=== PATIENT | male | born 2005 | race Two or more races ===

== ENCOUNTER 2025-02-03 20:35 | Inpatient (IN) | payer MEDICAID, OTHER ==
[~2025-02-03] VITALS: Ht 175.3 cm; Wt 106.5 kg
--- NOTE | 2025-02-03 21:01 | ED.PDOC ---
GI ASSESSMENT HPI Comments 19y M who presents to the ED for chief complaint of abdominal pain for the past 2 days. Pt states he has been having bilateral RUQ and LUQ abdominal pain, achy in nature, constant, radiating to upper back, with noted exacerbating factor of movement and no relieving factors. Pt has associated nausea and vomiting but denies any other symptoms. Pt mother states pt has been unable to keep anything down since. Pt otherwise denies these symptoms in the past. Chief Complaint: Abdominal Pain Time Seen by MD: 20:45 Reviewed Notes: Medications, Allergies Allergies: Coded Allergies: NO KNOWN ALLERGIES (Unverified , 02/03/25) Information Source: Patient, Relative (Mother) Mode of Arrival: Ambulatory Brought in by: mother Timing: Hours, Days Duration: Since onset Prehospital treatment: None Quality: Aching Vomitus: Food Particles Stool: Normal Past Medical History PAST MEDICAL HISTORY: Denies Surgical History: Denies all surgeries Family History Family History: Reviewed,noncontributory to illness Social History Smoker: Non-Smoker Alcohol: Denies ETOH Use Drugs: Denies Drug Use Lives In: Home Constitutional: denies: chills, diaphoresis, fatigue, fever, malaise, sweats, weakness, others EENTM: denies: blurred vision, double vision, ear bleeding, ear discharge, ear drainage, ear pain, ear ringing, eye pain, eye redness, hearing loss, mouth pain, mouth swelling, nasal discharge, nose bleeding, nose congestion, nose pain, photophobia, tearing, throat pain, throat swelling, voice changes, others Respiratory: denies: cough, hemoptysis, orthopnea, SOB at rest, shortness of breath, SOB with excertion, stridor, wheezing, others Cardiovascular: denies: chest pain, dizzy spells, diaphoresis, Dyspnea on exertion, edema, irregular heart beat, left arm pain, lightheadedness, palpitations, PND, syncope, others Gastrointestinal: reports: abdominal pain, nausea, vomiting; denies: abdomen distended, blood streaked bowels, constipated, diarrhea, dysphagia, difficulty swallowing, hematemesis, melena, poor appetite, poor fluid intake, rectal bleeding, rectal pain, others Genitourinary: denies: burning, dysuria, flank pain, frequency, hematuria, incontinence, penile discharge, penile sore, pain, testicle pain, testicle swelling, urgency, others Neurological: denies: dizziness, fainting, headache, left sided numbness, left sided weakness, numbness, paresthesia, pre-existing deficit, right sided numbness, right sided weakness, seizure, speech problems, tingling, tremors, weakness, others Musculoskeletal: reports: back pain; denies: gout, joint pain, joint swelling, muscle pain, muscle stiffness, neck pain, others Integumetry: denies: bruises, change in color, change in hair/nails, dryness, laceration, lesions, lumps, rash, wounds, others Allergic/Immunocompromised: denies: Difficulty Healing, Frequent Infections, Hives, Itching, others Hematologic/Lymphatic: denies: anemia, blood clots, easy bleeding, easy bruising, swollen glands, others Endocrine: denies: excessive hunger, excessive sweating, excessive thirst, excessive urination, flushing, intolerance to cold, intolerance to heat, unexplained weight gain, unexplained weight loss, others Psychiatric: denies: anxiety, bipolar disorder, depression, hopeless, panic disorder, schizophrenia, sleepless, suicidal, others All Other Systems: Reviewed and Negative Physical Exam General Appearance: Moderate Distress HEENT: Normal ENT Inspection, Pharynx Normal, TMs Normal Neck: Full Range of Motion, Non-Tender, Normal, Normal Inspection Respiratory: Chest Non-Tender, Lungs Clear, No Accessory Muscle Use, No Respiratory Distress, Normal Breath Sounds Cardiovascular: No Edema, No JVD, No Murmur, No Gallop, Normal Peripheral Pulses, Regular Rate/Rhythm Breast Exam: Deferred Gastrointestinal: LUQ (tenderness to palpation), RUQ (tenderness to palpation) Genitalia: Deferred Pelvic: Deferred Rectal: Deferred Extremities: No calf tenderness, Normal capillary refill, Normal inspection, Normal range of motion, Non-tender, No pedal edema Musculoskeletal : Apperance: Normal Neurologic: Alert, 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 Was a procedure done?: No GI differential Dx Differential Diagnosis: Appendicitis, Constipation, Esophagitis, Gastritis/PUD, Gastroenteritis, Pancreatitis, Dehydration, Food Poisoning, Bacterial, Viral, Kidney Stone X-Ray, Labs, Meds, VS Vital Signs Date Time Temp Pulse Resp B/P (MAP) Pulse Ox O2 Delivery O2 Flow Rate FiO2 02/03/25 20:37 97.5 90 18 141/89 96 97.5 Lab Test 02/03/25 21:03 Range/Units White Blood Count 13.9 H 4.4-10.8 10^3/uL Red Blood Count 5.51 4.5-5.90 10^6/uL Hemoglobin 15.5 13.5-17.5 g/dL Hematocrit 45.2 41.0-53.0 % Mean Corpuscular Volume 82.1 80.0-100.0 fL Mean Corpuscular Hemoglobin 28.1 28.0-32.0 pg Mean Corpuscular Hemoglobin Concent 34.3 32.0-36.0 g/dL Red Cell Distribution Width 13.4 11.8-14.3 % Platelet Count 305 140-450 10^3/uL Mean Platelet Volume 9.2 6.9-10.8 fL Neutrophils (%) (Auto) 83.6 H 37.0-80.0 % Lymphocytes (%) (Auto) 8.3 L 10.0-50.0 % Monocytes (%) (Auto) 7.4 0.0-12.0 % Eosinophils (%) (Auto) 0.3 0.0-7.0 % Basophils (%) (Auto) 0.4 0.0-2.0 % Neutrophils # (Auto) 11.7 H 1.6-8.6 10 ^3/uL Lymphocytes # (Auto) 1.2 0.4-5.4 10 ^3/uL Monocytes # (Auto) 1.0 0-1.3 10 ^3/uL Eosinophils # (Auto) 0 0-0.8 10 ^3/uL Basophils # (Auto) 0.1 0-0.2 10 ^3/uL Nucleated Red Blood Cells 0.2 % Sodium Level 141 136-145 mmol/L Potassium Level 3.5 3.5-5.1 mmol/L Chloride Level 106 98-107 mmol/L Carbon Dioxide Level 20 20-31 mmol/L Anion Gap 15 5-15 Blood Urea Nitrogen 6 L 9-23 mg/dL Creatinine 0.90 0.700-1.30 mg/dL Glomerular Filtration Rate Calc 126 >90 mL/min BUN/Creatinine Ratio 6.7 L 10.0-20.0 Serum Glucose 118 H 74-106 mg/dL Calcium Level 9.9 8.7-10.4 mg/dL Total Bilirubin 0.7 0.2-1.0 mg/dL Aspartate Amino Transferase (AST) 14 13-40 U/L Alanine Aminotransferase (ALT) 14 7-40 U/L Alkaline Phosphatase 83 46-116 U/L Total Protein 8.5 H 5.7-8.2 g/dL Albumin 4.9 H 3.2-4.8 g/dL Lipase 47 12-53 U/L X-Ray, Labs, Meds, VS Comment CT report shows possible cholecystitis, recommending MRCP Patient will be admitted for cholecystitis, Patient be started on Rocephin and Flagyl Given morphine 4 mg Zofran 4 mg for pain Patient hemodynamically stable, vital signs reviewed Prior medical history reviewed Time of 1ST Reevaluation: 21:15 Reevaluation 1ST: Unchanged Patient Education/Counseling: Diagnosis, Treatment Family Education/Counseling: Diagnosis, Treatment SEPSIS Sepsis Screen Date sepsis recognized/suspect: Feb 03, 2025 Time Sepsis recognized/suspect: 2036 Recent Procedure: No On Antibiotic Therapy: No Respiratory Rate >20: No Heart Rate >90: Yes Temp<36 C (96.8 F) or >38.3 C: No SBP <90 or MAP <65 mmHG: No New Acute Mental Status Change: No Is the patient on CPAP, BIPAP,: No Physician Orders Urinalysis (02/03/25 20:53) Ct Ab Pel Wo Con-No Oral Or Iv (02/03/25 20:53) Ondansetron Hcl (Zofran) (02/03/25 22:30) Morphine Sulfate Injection (02/03/25 22:30) Ceftriaxone Ivpb Rocephin (02/03/25 22:30) Metronidazole Ivpb Flagyl (02/03/25 22:30) Vital Signs Date Time Temp Pulse Resp B/P (MAP) Pulse Ox O2 Delivery O2 Flow Rate FiO2 02/03/25 20:37 97.5 90 18 141/89 96 97.5 Laboratory Tests Test 02/03/25 21:03 White Blood Count 13.9 10^3/uL (4.4-10.8) H Departure 1 Departure Time of Disposition: 22:21 Impression: Primary Impression: Cholecystitis Disposition: ADMITTED INPATIENT Condition: Stable Critical Care Note Critical Care Time?: No Stability Stability form required: No Heart Score Heart Score: Heart Score Response (Comments) Value History N/A 0 EKG N/A 0 Age N/A 0 Risk Factors N/A 0 Troponin N/A 0 Total 0 I personally scribed for CHEYANNE HOLLOWAY ([email or web address]) on 02/03/25 at 21:01. Electronically submitted by Arnaud FLOR). CHEYANNE HOLLOWAY Feb 03, 2025 21:01
[2025-02-03 21:25] LABS: Hematocrit 45.2 % (41.0-53.0); Hemoglobin 15.5 g/dL (13.5-17.5); Mean Corpuscular Hemoglobin 28.1 pg (28.0-32.0); Mean Corpuscular Volume 82.1 fL (80.0-100.0); Nucleated Red Blood Cells % 0.2 %
[2025-02-03 21:35] LABS: Alanine Aminotransferase 14 U/L (7-40); Alkaline Phosphatase 83 U/L (46-116); Anion Gap 15 (5-15); BUN/Creatinine Ratio 6.7 (10.0-20.0); Bilirubin, Total 0.7 mg/dL (0.2-1.0); Calcium 9.9 mg/dL (8.7-10.4); Chloride 106 mmol/L (98-107); Lipase 47 U/L (12-53); Potassium 3.5 mmol/L (3.5-5.1); Sodium 141 mmol/L (136-145)
[2025-02-03 21:36] LABS: Albumin 4.9 g/dL (3.2-4.8); Blood Urea Nitrogen 6 mg/dL (9-23); Carbon Dioxide 20 mmol/L (20-31); Glucose 118 mg/dL (74-106); Total Protein 8.5 g/dL (5.7-8.2)
--- NOTE | 2025-02-03 22:15 | DVH ---
Exam: CT CT AB PEL WO CON-NO ORAL OR IV History: abd pain Comparison Study: None TECHNIQUE: Multidetector CT of the abdomen and pelvis was performed from lung bases to pubic symphysi s. Imaging was performed without IV contrast. Axial, coronal, and sagittal multiplanar reformats were obtained from the axial data set by the technologist. RADIATION DOSE: CTDI vol 13.58 mGy. DLP 839.05 mGy.cm Findings: Limited evaluation of the solid organs in the absence of IV contrast. Lungs: The lung bases are clear. Liver: Unremarkable. Spleen: Unremarkable. Pancreas: Unremarkable. Gallbladder: There is pericholecystic stranding. Heterogeneous appearance of the gallbladder, predomi nantly hypodense with small hypodense lesion along the posterior aspect. There is an enlarged presume d adjacent lymph node measuring 12 mm. Adrenals: Unremarkable Kidneys: Unremarkable. Pelvic Viscera: Unremarkable. Vasculature: Unremarkable. Retroperitoneum: Unremarkable. Bowel: No bowel obstruction. Portions of the bowel are decompressed, limiting assessment. The appendi x is normal. Musculoskeletal: Unremarkable. Soft tissues: Unremarkable Impression: 1. Abnormal appearance of the gallbladder with pericholecystic stranding as detailed. Findings may re flect acute cholecystitis in the appropriate clinical setting. Neoplastic etiologies cannot be exclud ed. Further evaluation with MRCP is suggested.
--- NOTE | 2025-02-03 22:48 | DVHHPRES ---
History of Present Illness Resident Creating Document: WILLIAM SEBASTIAN RESIDENT History of Present Illness This is a 19-year-old male without significant past medical history, presented to the ER with chief complain of abdominal pain and back pain. Patient reported the pain started 2 days back, described as cramp like, 8/10, improved on leaning forward, nonradiating. He also complained of vomiting, 20 episodes since the morning, vomitus contained food content, mucus, no blood seen. Patient denies fever, chills, constipation, diarrhea, chest pain, burning micturition. Previous hospitalization: No previous hospitalization PMHx: No significant past medical or surgical history Family history: No significant family history Social history: Marijuana use reported (last smoked in the morning). Denies alcohol, recreational drug use. Lives in home with family. Home medication: No home medications Allergic history: No known allergies Patient was examined at bedside today. Vitals show tachycardia on arrival Review of Systems Gastrointestinal: Nausea, Vomiting, Abdominal Pain Musculoskeletal: back pain Allergies: Coded Allergies: NO KNOWN ALLERGIES (Unverified , 02/03/25) Exam Vital Signs Vital Signs Date Time Temp Pulse Resp B/P (MAP) Pulse Ox O2 Delivery O2 Flow Rate FiO2 02/03/25 22:38 99.0 79 20 145/69 (94) 95 99.0 Exam General: Patient is in acute distress. Patient alert and oriented in person, place and time. Patient following commands. HEENT: Normocephalic, atraumatic, moist mucous membranes Respiratory/pulmonary: Clear lungs bilaterally, vesicular murmurs present in almost all lung gee, no associated crackles or wheezes. Cardiovascular: Normal heart sounds S1 and S2 with no associated murmurs Abdomen: Mild diffuse abdominal tenderness. Hernandez sign negative Extremities: There is no peripheral edema present at the lower extremities. Peripheral Pulses: 3+ Radial (R). 3+ Radial (L). 3+ Dorsalis pedis (R). 3+ Dorsalis pedis(L) Skin: No rashes or pruritus, there is no sacral edema present at this time. Neurological: Intact cranial nerves with no focal neurologic deficits Labs/Xrays Labs Test 02/03/25 21:03 Range/Units White Blood Count 13.9 H 4.4-10.8 10^3/uL Red Blood Count 5.51 4.5-5.90 10^6/uL Hemoglobin 15.5 13.5-17.5 g/dL Hematocrit 45.2 41.0-53.0 % Mean Corpuscular Volume 82.1 80.0-100.0 fL Mean Corpuscular Hemoglobin 28.1 28.0-32.0 pg Mean Corpuscular Hemoglobin Concent 34.3 32.0-36.0 g/dL Red Cell Distribution Width 13.4 11.8-14.3 % Platelet Count 305 140-450 10^3/uL Mean Platelet Volume 9.2 6.9-10.8 fL Neutrophils (%) (Auto) 83.6 H 37.0-80.0 % Lymphocytes (%) (Auto) 8.3 L 10.0-50.0 % Monocytes (%) (Auto) 7.4 0.0-12.0 % Eosinophils (%) (Auto) 0.3 0.0-7.0 % Basophils (%) (Auto) 0.4 0.0-2.0 % Neutrophils # (Auto) 11.7 H 1.6-8.6 10 ^3/uL Lymphocytes # (Auto) 1.2 0.4-5.4 10 ^3/uL Monocytes # (Auto) 1.0 0-1.3 10 ^3/uL Eosinophils # (Auto) 0 0-0.8 10 ^3/uL Basophils # (Auto) 0.1 0-0.2 10 ^3/uL Nucleated Red Blood Cells 0.2 % Sodium Level 141 136-145 mmol/L Potassium Level 3.5 3.5-5.1 mmol/L Chloride Level 106 98-107 mmol/L Carbon Dioxide Level 20 20-31 mmol/L Anion Gap 15 5-15 Blood Urea Nitrogen 6 L 9-23 mg/dL Creatinine 0.90 0.700-1.30 mg/dL Glomerular Filtration Rate Calc 126 >90 mL/min BUN/Creatinine Ratio 6.7 L 10.0-20.0 Serum Glucose 118 H 74-106 mg/dL Calcium Level 9.9 8.7-10.4 mg/dL Total Bilirubin 0.7 0.2-1.0 mg/dL Aspartate Amino Transferase (AST) 14 13-40 U/L Alanine Aminotransferase (ALT) 14 7-40 U/L Alkaline Phosphatase 83 46-116 U/L Total Protein 8.5 H 5.7-8.2 g/dL Albumin 4.9 H 3.2-4.8 g/dL Lipase 47 12-53 U/L SEPSIS Sepsis Screen Date sepsis recognized/suspect: Feb 03, 2025 Time Sepsis recognized/suspect: 2036 Recent Procedure: No On Antibiotic Therapy: No Respiratory Rate >20: No Heart Rate >90: Yes Temp<36 C (96.8 F) or >38.3 C: No SBP <90 or MAP <65 mmHG: No New Acute Mental Status Change: No Is the patient on CPAP, BIPAP,: No Physician Orders Urinalysis (02/03/25 20:53) Ct Ab Pel Wo Con-No Oral Or Iv (02/03/25 20:53) Ceftriaxone 1gm/50ml (Rocephin) (02/03/25 22:30) Metronidazole 500mg/100ml (Flagyl 500mg/ (02/03/25 22:30) Vital Signs Date Time Temp Pulse Resp B/P (MAP) Pulse Ox O2 Delivery O2 Flow Rate FiO2 02/03/25 22:38 99.0 79 20 145/69 (94) 95 99.0 02/03/25 20:37 97.5 90 18 141/89 96 97.5 Laboratory Tests Test 02/03/25 21:03 White Blood Count 13.9 10^3/uL (4.4-10.8) H Assessment/Plan Assessment/Plan Acute infectious gastroenteritis Labs showed neutrophilic leukocytosis IV fluids IV ceftriaxone 1 g daily IV metronidazole 500 mg 3 times daily Monitor electrolytes, avoid opioids Clear liquid diet; Advance diet as tolerated Rule out acute cholecystitis CT shows pericolic stranding, small hypodense lesion along the posterior aspect of gallbladder with enlarged lymph node 12 mm Ordered HIDA scan Consulted surgery Consider MRI to evaluate hypodense lesion seen in gallbladder Cannabinoid hyperemesis syndrome Urine drug screen ordered GI cocktail- IV Protonix, p.o. sucralfate 1 g b.i.d. IV Zofran NPO; Advance diet as tolerated Advised absolute cannabis cessation DIET: NPO DVT PROPHYLAXIS: Lovenox GI PROPHYLAXIS: Protonix CODE STATUS: Goals of care discussed with patient at bedside for more than 35 minutes. Full code DISPOSITION: Med/surge Patient's status and plan discussed with the patient. Case discussed with Dr. Lee Plan discussed with: Patient, Other (Mother, nurses) Date of Service: Feb 03, 2025 Billing Provider: BOYD DE LEON MD Common Visit Codes: [id number] INP/OBS CARE (HIGH) Secondary Visit Codes: 57616-[id number] CARE PLAN 30 MINUTES WILLIAM SEBASTIAN RESIDENT Feb 03, 2025 22:48 UZMA LIN RESIDENT Feb 04, 2025 06:41
[2025-02-03] MEDS ORDERED: MORPHINE SULFATE INJ 2 MG/ml SYRG IV PRN (23:15)
[2025-02-03] MEDS ORDERED: ONDANSETRON HCL 4 MG/2 ML VIAL IV PRN (23:15)
[2025-02-03 23:30] LABS: INR 1.08 (0.9-1.15); Partial Thromboplastin Time 29.9 SEC (24.5-34.5); Prothrombin Time 11.4 sec (9.3-11.8)
[2025-02-03 23:48] LABS: Urine Amorphous Crystal FEW /hpf (None Seen); Urine Protein, UAD TRACE (Negative)
[2025-02-03 23:52] LABS: Cannabinoid Screen, Urine Pos (NEGATIVE)
[2025-02-03] MEDS: SODIUM CHLORIDE 0.9% 1,000 ML IV ONE (23:55)
[2025-02-04] VITALS (9 sets, daily range): BP systolic 110–142; BP diastolic 56–90; PULSE 67–101; RESP 15–20; TEMP 97.5–98.8; O2SAT 97–100
[2025-02-04] MEDS: ONDANSETRON HCL 4 MG/2 ML VIAL IV ONE (00:02)
[2025-02-04] MEDS: MORPHINE SULFATE 4 MG/ML SYR/VIAL IV ONE (00:02)
[2025-02-04 00:04] LABS: Cholesterol 130.0 mg/dL (< 200); HDL Cholesterol 36.0 mg/dL (40-59); Triglycerides 85.0 mg/dL (< 150)
[2025-02-04 00:05] LABS: Amphetamine Screen, Urine Neg (NEGATIVE); Barbiturate Scree,Urine Neg (NEGATIVE); Benzodiazephine Screen, Urine Neg (NEGATIVE); Cocaine Screen, Urine Neg (NEGATIVE); Opiate Scree,Urine Neg (NEGATIVE); Phencyclidine Screen, Urine Neg (NEGATIVE)
[2025-02-04 00:05] LABS: Magnesium 1.8 mg/dL (1.6-2.6)
[2025-02-04] MEDS: METOCLOPRAMIDE HCL 5MG/ml INJ 2ml VIAL IV ONE (00:48)
[2025-02-04] MEDS: ENOXAPARIN SOD 40 MG/0.4 ML SYRINGE SC ONE (00:48)
[2025-02-04] MEDS: ACETAMINOPHEN 325 MG TAB PO PRN (02:28)
[2025-02-04] MEDS: MORPHINE SULFATE 4 MG/ML SYR/VIAL IV PRN (04:09)
[2025-02-04] MEDS: SUCRALFATE 1 GM/10 ML ORAL SUSP PO SCH (06:12)
[2025-02-04 07:25] LABS: Hematocrit 41.4 % (41.0-53.0); Hemoglobin 14.5 g/dL (13.5-17.5); Mean Corpuscular Hemoglobin 28.0 pg (28.0-32.0); Mean Corpuscular Volume 80.2 fL (80.0-100.0); Nucleated Red Blood Cells % 0.0 %
[2025-02-04 07:45] LABS: Alanine Aminotransferase 14 U/L (7-40); Albumin 4.6 g/dL (3.2-4.8); Alkaline Phosphatase 75 U/L (46-116); Anion Gap 15 (5-15); BUN/Creatinine Ratio 10.7 (10.0-20.0); Bilirubin, Total 0.7 mg/dL (0.2-1.0); Calcium 9.5 mg/dL (8.7-10.4); Carbon Dioxide 22 mmol/L (20-31); Chloride 102 mmol/L (98-107); Sodium 139 mmol/L (136-145); Total Protein 7.9 g/dL (5.7-8.2)
[2025-02-04 07:47] LABS: Blood Urea Nitrogen 9 mg/dL (9-23); Glucose 116 mg/dL (74-106); Potassium 3.5 mmol/L (3.5-5.1)
--- NOTE | 2025-02-04 08:41 | DVH ---
INDICATION: Evaluation of gallbladder TECHNIQUE: Multiple real-time sonographic images were obtained of the right upper quadrant. COMPARISON: None FINDINGS: The liver demonstrates increased echotexture without focal mass lesions. The liver measure s 15.5 cm. There is no intrahepatic or extrahepatic ductal dilatation. The common duct measures 0.5 cm. Cholelithiasis. The gallbladder wall measures 0.3 cm and is within normal limits. The right kidney measures 10.0 cm. The right kidney is normal in contour, size, and shape. The echoge nicity is normal. There is no hydronephrosis. The pancreas is not well visualized due to overlying bowel gas. IMPRESSION: Cholelithiasis. Hepatic steatosis.
--- NOTE | 2025-02-04 11:43 | DVH ---
Procedure: WI NM HIDA SCAN Exam Date: 02/04/2025 09:50 AM Clinical History: Rule out Cholecystitis Comparison Study: None Nuclear Medicine Hepatobiliary Scan. Technique: Following the intravenous administration of 5.3 mCi of technetium 99m labeled Choletec multiple plana r abdominal planar images were obtained. 2 mg IV morphine administered. Findings: The liver appears grossly normal in size. There is no abnormal persistence of the cardiac or blood po ol activity. There is excretion of activity into the small bowel. There is nonvisualization of the g allbladder. Impression: Nonvisualization of the gallbladder suggestive of cystic duct obstruction.
[2025-02-04] MEDS: PANTOPRAZOLE 40 MG/10 ML VIAL INJ IV SCH (11:46)
[2025-02-04] MEDS: SODIUM CHLORIDE 0.9% 1,000 ML IV SCH (11:47)
[2025-02-04] MEDS: POTASSIUM PHOSPHATE 22 MEQ in SODIUM CHL 0.9% 100 ML IV ONE (13:09)
--- NOTE | 2025-02-04 17:28 | DVHPNRES ---
Progress Note Date Seen: Feb 04, 2025 Resident Creating Document: STACY SALEH Medical Necessity Reason Pt with a Central, PICC or Fol: No Subjective Review of Systems This is a 19-year-old male without significant past medical history, presented to the ER with chief complain of abdominal pain and back pain. Patient reported the pain started 2 days back, described as cramp like, 8/10, improved on leaning forward, nonradiating. He also complained of vomiting, 20 episodes since the morning, vomitus contained food content, mucus, no blood seen. Patient denies fever, chills, constipation, diarrhea, chest pain, burning micturition. Patient was examined at bedside today. Vitals show tachycardia on arrival. Imaging revealed cholelithiasis and hepatic steatosis on ultrasound, and a HIDA scan showed nonvisualization of the gallbladder consistent with cystic duct obstruction. Past surgical history: none Home medications: none Past Hospitalization: none Social & Personal history: Marijuana use reported (last smoked in the morning). Denies alcohol, recreational drug use. Lives in home with family. Patient seen and examined at bedside. Patient is alert and oriented to time, place person and responding to all questions. Eyes: No Pain, No Vision change, No Conjunctivae inflammation, No Eyelid inflammation, No Other, No Redness ENT: No Ear pain, No Ear discharge, No Nose pain, No Nose discharge, No Nose congestion, No Mouth pain, No Mouth swelling, No Throat pain, No Throat swelling, No Other Cardiovascular: No Chest Pain, No Palpitations, No Orthopnea, No Paroxysmal No Dyspnea, No Edema, No Lt Headedness, No Other Respiratory: No Cough, No Dry, No Shortness of breath, No SOB with exertion, No Wheezing, No Hemoptysis, No Pleuritic Pain, No Sputum, No Other Gastrointestinal: Nausea, Vomiting, Abdominal Pain, No Diarrhea, No Constipation, No Melena, No Hematochezia, No Other Genitourinary: No Dysuria, No Frequency, No Incontinence, No Hematuria, No Retention, No Other Musculoskeletal: No other, No neck pain, No shoulder pain, No arm pain, No back pain, No hand pain, No leg pain, No foot pain Skin: No Rash, No Lesions, No Jaundice, No Bruising, No Other Objective vital signs Vital Sign Date Time Temp Pulse Resp B/P (MAP) Pulse Ox O2 Delivery O2 Flow Rate FiO2 10/2/25 16:50 98.8 89 17 125/60 (81) 97 98.8 02/04/25 08:00 Room Air* 0 21 Total Intake and Output 02/03/25 02/03/25 02/04/25 15:00 23:00 07:00 Intake Total 1200 ml Balance 1200 ml medications Current Medications Medications Dose Ordered Sig/[place] Route Start Time Stop Time Status Last Admin Dose Admin Sodium Chloride 1,000 ml @ 120 mls/hr Q8H20M IV 02/03/25 23:15 02/04/25 15:55 120 MLS/HR Acetaminophen 325 mg Q4HP PRN PO 02/03/25 23:15 02/04/25 17:14 325 MG Ondansetron HCl 4 mg Q4HP PRN IV 02/03/25 23:15 Enoxaparin Sodium 40 mg DAILY SC 02/05/25 10:00 Ceftriaxone Sodium 50 ml @ 100 mls/hr DAILY@09 IV 02/05/25 09:00 Metronidazole 100 ml @ 100 mls/hr Q8HR IV 02/04/25 06:00 02/04/25 12:01 100 MLS/HR Pantoprazole Sodium 40 mg DAILY IV 02/04/25 10:00 02/04/25 11:46 40 MG Sucralfate 1 gm BID@0600,2200 PO 02/04/25 06:00 02/04/25 06:12 1 GM Morphine Sulfate 2 mg Q4HPRN PRN IV 02/04/25 04:00 02/04/25 14:35 2 MG Examination General: Patient is in acute distress. Patient alert and oriented in person, place and time. Patient following commands. HEENT: Normocephalic, atraumatic, moist mucous membranes Respiratory/pulmonary: Clear lungs bilaterally, vesicular murmurs present in almost all lung gee, no associated crackles or wheezes. Cardiovascular: Normal heart sounds S1 and S2 with no associated murmurs Abdomen: Mild diffuse abdominal tenderness. Hernandez sign positive Extremities: There is no peripheral edema present at the lower extremities. Peripheral Pulses: 3+ Radial (R). 3+ Radial (L). 3+ Dorsalis pedis (R). 3+ Dorsalis pedis(L) Skin: No rashes or pruritus, there is no sacral edema present at this time. Neurological: Intact cranial nerves with no focal neurologic deficits laboratory and microbiology Laboratory Tests 02/04/25 06:18 Test 02/04/25 06:18 Range/Units Serum Glucose 116 H 74-106 mg/dL Labs and/or images reviewed: Labs reviewed by me, Image(s) reviewed by me Problem List/Assessment/Plan Problem List/Assessment/Plan Cholelithiasis Acute cholecystitis CT shows pericolic stranding, small hypodense lesion along the posterior aspect of gallbladder with enlarged lymph node 12 mm HIDA scan shows Nonvisualization of the gallbladder suggestive of cystic duct obstruction. Gallbladder US- Cholelithiasis. Hepatic steatosis. Consulted surgery Consider MRI to evaluate hypodense lesion seen in gallbladder Tylenol Zofran Morphine 2 mg Acute infectious gastroenteritis Labs showed neutrophilic leukocytosis IV fluids IV ceftriaxone 1 g daily IV metronidazole 500 mg 3 times daily Monitor electrolytes, avoid opioids Clear liquid diet; Advance diet as tolerated Cannabinoid hyperemesis syndrome Urine drug screen ordered GI cocktail- IV Protonix, p.o. sucralfate 1 g b.i.d. IV Zofran NPO; Advance diet as tolerated Advised absolute cannabis cessation DIET: NPO PUD prophylaxis: protonix 40mg DVT prophylaxis: Lovenox 40mg Goals of care: Full code, discussed for >16 minutes on 02/04/25 Plan discussed with patient Plan discussed with Dr. [place] Plan discussed with: Patient Date of Service: Feb 04, 2025 Billing Provider: EMILIANO WASHINGTON MD Common Visit Codes: [id number] INP/OBS CARE(HIGH) STACY SALEH RESIDENT Feb 04, 2025 17:28 EMILIANO WASHINGTON MD Feb 09, 2025 20:51
[2025-02-04] MEDS: HYDROmorphone HCL 2 MG/ML VL/or syr IV ONE (18:10)
[2025-02-04] MEDS: HYDROmorphone HCL 2 MG/ML VL/or syr IV PRN (21:45)
--- NOTE | 2025-02-04 22:26 | DVHINCON2 ---
Consultation - Surgical Date Seen: Feb 04, 2025 Referring Physician Reason for Consultation Acute cholecystitis History of Present Illness History of Present Illness Mr. Randall is a 19-year-old male who presented to the ED and was admitted due to recurrent episodes of right upper quadrant abdominal pain. This pain episode started yesterday and the pain has kept increasing and is associated with nausea and vomiting. Pain came about after eating some greasy fatty food. Denies fevers, chills, changes in urinary or stooling habits, acholic stools. Past Medical/Surgical History Past Medical/Surgical History PMH/PSH denies Family and Social History Family and Social History Family history noncontributory ETOH/T Ob denies Drugs occasional marijuana Allergies and medications Allergies: Coded Allergies: NO KNOWN ALLERGIES (Unverified , 02/03/25) Review of systems Review of Systems: Deferred Examination Vital signs Vital Signs Date Time Temp Pulse Resp B/P (MAP) Pulse Ox O2 Delivery O2 Flow Rate FiO2 02/04/25 21:45 87 18 134/70 02/04/25 21:00 97.9 97 97.9 02/04/25 20:00 Room Air* 0 21 Medications Current Medications Medications (Trade) Dose Ordered Sig/[place] Route PRN Reason Start Time Stop Time Status Last Admin Sodium Chloride 1,000 ml @ 120 mls/hr Q8H20M IV 02/03/25 23:15 02/04/25 15:55 Acetaminophen (Tylenol Tablet) 325 mg Q4HP PRN PO MILD PAIN (1-3 PAIN SCALE) 02/03/25 23:15 02/04/25 17:14 Ondansetron HCl (Zofran) 4 mg Q4HP PRN IV NAUSEA / VOMITING 02/03/25 23:15 Morphine Sulfate 2 mg Q4HPRN PRN IV SEVERE PAIN (7-10 PAIN SCALE) 02/03/25 23:15 02/04/25 03:59 DC Enoxaparin Sodium (Lovenox) 40 mg DAILY SC 02/05/25 10:00 Ceftriaxone Sodium 50 ml @ 100 mls/hr DAILY@09 IV 02/05/25 09:00 Metronidazole 100 ml @ 100 mls/hr Q8HR IV 02/04/25 06:00 02/04/25 21:46 Pantoprazole Sodium (Protonix) 40 mg DAILY IV 02/04/25 10:00 02/04/25 11:46 Sucralfate (Carafate Susp) 1 gm BID@0600,2200 PO 02/04/25 06:00 02/04/25 21:45 Morphine Sulfate 2 mg Q4HPRN PRN IV SEVERE PAIN (7-10 PAIN SCALE) 02/04/25 04:00 02/04/25 20:12 DC 02/04/25 14:35 Hydromorphone HCl (Dilaudid Injection) 1 mg Q4HPRN PRN IV MODERATE PAIN (4-6 PAIN SCALE) 02/04/25 20:15 02/04/25 21:45 Laboratory Labs Test 02/04/25 06:18 02/03/25 21:04 02/03/25 21:03 02/03/25 20:50 Range/Units White Blood Count 13.4 H 4.4-10.8 10^3/uL Red Blood Count 5.16 4.5-5.90 10^6/uL Hemoglobin 14.5 13.5-17.5 g/dL Hematocrit 41.4 41.0-53.0 % Mean Corpuscular Volume 80.2 80.0-100.0 fL Mean Corpuscular Hemoglobin 28.0 28.0-32.0 pg Mean Corpuscular Hemoglobin Concent 35.0 32.0-36.0 g/dL Red Cell Distribution Width 13.5 11.8-14.3 % Platelet Count 266 140-450 10^3/uL Mean Platelet Volume 9.5 6.9-10.8 fL Neutrophils (%) (Auto) 88.3 H 37.0-80.0 % Lymphocytes (%) (Auto) 4.6 L 10.0-50.0 % Monocytes (%) (Auto) 7.0 0.0-12.0 % Eosinophils (%) (Auto) 0.0 0.0-7.0 % Basophils (%) (Auto) 0.1 0.0-2.0 % Neutrophils # (Auto) 11.8 H 1.6-8.6 10 ^3/uL Lymphocytes # (Auto) 0.6 0.4-5.4 10 ^3/uL Monocytes # (Auto) 0.9 0-1.3 10 ^3/uL Eosinophils # (Auto) 0 0-0.8 10 ^3/uL Basophils # (Auto) 0 0-0.2 10 ^3/uL Nucleated Red Blood Cells 0.0 % Sodium Level 139 136-145 mmol/L Potassium Level 3.5 3.5-5.1 mmol/L Chloride Level 102 98-107 mmol/L Carbon Dioxide Level 22 20-31 mmol/L Anion Gap 15 5-15 Blood Urea Nitrogen 9 9-23 mg/dL Creatinine 0.84 0.700-1.30 mg/dL Glomerular Filtration Rate Calc 129 >90 mL/min BUN/Creatinine Ratio 10.7 10.0-20.0 Serum Glucose 116 H 74-106 mg/dL Calcium Level 9.5 8.7-10.4 mg/dL Total Bilirubin 0.7 0.2-1.0 mg/dL Aspartate Amino Transferase (AST) 12 L 13-40 U/L Alanine Aminotransferase (ALT) 14 7-40 U/L Alkaline Phosphatase 75 46-116 U/L Total Protein 7.9 5.7-8.2 g/dL Albumin 4.6 3.2-4.8 g/dL Prothrombin Time 11.4 9.3-11.8 sec Prothrombin Time INR 1.08 0.9-1.15 Activated Partial Thromboplast Time 29.9 24.5-34.5 SEC Hemoglobin A1c 5.1 <5.7 % A1C Phosphorus Level 2.2 L 2.4-5.1 mg/dL Magnesium Level 1.8 1.6-2.6 mg/dL C-Reactive Protein High Sensitivity 1.91 H <1.0 mg/dL Triglycerides Level 85 < 150 mg/dL Cholesterol Level 130 < 200 mg/dL LDL Cholesterol 91 < 100 mg/dL HDL Cholesterol 36 L 40-59 mg/dL Vitamin B12 Level 536 211-911 pg/mL Vitamin D 25-Hydroxy 26.4 L 30.0-100 ng/mL Thyroid Stimulating Hormone (TSH) 0.68 0.55-4.78 uIU/mL Lipase 47 12-53 U/L Urine Color Yellow Yellow Urine Clarity Turbid H Clear Urine pH 6.0 5.0-9.0 Urine Specific [place] 1.029 1.001-1.035 Urine Protein Trace H Negative Urine Ketones 4+ H Negative Urine Blood Negative Negative /uL Urine Nitrite Negative Negative Urine Bilirubin Negative Negative Urine Urobilinogen Normal Negative mg/dL Urine Leukocyte Esterase Negative Negative /uL Urine RBC None seen 0 - 3 /hpf Urine Microscopic WBC 7 H 0-3 /HPF Urine Squamous Epithelial Cells None seen <5 /hpf Urine Amorphous Crystals Few None Seen /hpf Urine Bacteria None seen None Seen /hpf Urine Mucus Few None Seen Urine Glucose Normal Normal mg/dL Urine Opiates Screen Neg NEGATIVE Urine Fentanyl Screen Neg NEGATIVE Urine Barbiturates Screen Neg NEGATIVE Urine Phencyclidine Screen Neg NEGATIVE Urine Amphetamines Screen Neg NEGATIVE Urine Benzodiazepines Screen Neg NEGATIVE Urine Cocaine Screen Neg NEGATIVE Urine Cannabinoids Screen Pos NEGATIVE Examination: GENERAL:Normal, HEENT:Normal (No icterus), ABDOMEN:Normal Problem List/Assessment/Plan Problems: (1) Cholecystitis Assessment and Plan Mr. Randall is a 19-year-old male who presented with acute cholecystitis. On physical exam patient has exquisite right upper quadrant tenderness with positive Hernandez's sign. Ultrasound shows gallstones within the gallbladder wall lumen and pericholecystic fluid. HIDA scan shows nonvisualization of the gallbladder. These findings are consistent with acute cholecystitis. I offered laparoscopic cholecystectomy. Procedure, risks, benefits, complications, and alternatives discussed with the patient and mother. Patient and mother agree with the surgical plan. 1. Scheduled for laparoscopic cholecystectomy tomorrow a.m. 2. NPO at midnight 3. A.m. labs 4. Pain and nausea control Plan discussed with Plan discussed with: Patient, Other Visit Coding Surgery Date of Service if different f: Feb 04, 2025 Billing Provider: AHSAN VERDUGO MD Surgery Visit Codes: [id number] - INP CONSULT <110 MIN AHSAN VERDUGO MD Feb 04, 2025 22:26
[2025-02-05] VITALS (7 sets, daily range): BP systolic 109–124; BP diastolic 47–79; PULSE 82–102; RESP 18–24; TEMP 98–98.7; O2SAT 95–99
[2025-02-05 07:07] LABS: Anion Gap 10 (5-15); Carbon Dioxide 25 mmol/L (20-31); Chloride 102 mmol/L (98-107); Potassium 3.8 mmol/L (3.5-5.1); Sodium 137 mmol/L (136-145)
[2025-02-05 07:08] LABS: Calcium 9.0 mg/dL (8.7-10.4)
[2025-02-05 07:13] LABS: BUN/Creatinine Ratio 11.4 (10.0-20.0); Glucose 103 mg/dL (74-106)
[2025-02-05 07:14] LABS: Blood Urea Nitrogen 8 mg/dL (9-23)
[2025-02-05 07:24] LABS: Hematocrit 41.6 % (41.0-53.0); Hemoglobin 14.4 g/dL (13.5-17.5); Mean Corpuscular Hemoglobin 27.9 pg (28.0-32.0); Mean Corpuscular Volume 80.7 fL (80.0-100.0); Nucleated Red Blood Cells % 0.1 %
[2025-02-05] MEDS: ENOXAPARIN SOD 40 MG/0.4 ML SYRINGE SC SCH (08:35)
[2025-02-05] MEDS ORDERED: fentaNYL CITRATE 100 MCG/2 ML VL ONE ×3 (15:13→18:13)
[2025-02-05] MEDS ORDERED: MIDAZOLAM HCL 2MG/2ML 2ml VIAL (1mg/ml) ONE (15:13)
[2025-02-05] MEDS ORDERED: ONDANSETRON HCL 4 MG/2 ML VIAL ONE (15:14)
[2025-02-05] MEDS ORDERED: METOCLOPRAMIDE HCL 5MG/ml INJ 2ml VIAL ONE (15:14)
[2025-02-05] MEDS ORDERED: LIDOCAINE 2% (LOCAL ANESTH.) PF 5ml SDV ONE (15:14)
[2025-02-05] MEDS ORDERED: PROPOFOL 10 MG/ML 20 ML IV ONE (15:15)
[2025-02-05] MEDS ORDERED: ROCURONIUM 10MG/ML 10ML VIAL IV ONE (15:15)
[2025-02-05] MEDS: ceFAZolin 2 GM/D5W50ml 50 ML IV ONE (15:25)
[2025-02-05] MEDS: BUPIVACAINE 0.5% P/F INJ 10 ML VIAL ONE (15:49)
--- NOTE | 2025-02-05 18:42 | DVHPNRES ---
Progress Note Date Seen: Feb 05, 2025 Resident Creating Document: STACY SALEH Medical Necessity Reason Pt with a Central, PICC or Fol: No Subjective Review of Systems This is a 19-year-old male without significant past medical history, presented to the ER with chief complain of abdominal pain and back pain. Patient reported the pain started 2 days back, described as cramp like, 8/10, improved on leaning forward, nonradiating. He also complained of vomiting, 20 episodes since the morning, vomitus contained food content, mucus, no blood seen. Patient denies fever, chills, constipation, diarrhea, chest pain, burning micturition. Patient was examined at bedside today. Vitals show tachycardia on arrival. Imaging revealed cholelithiasis and hepatic steatosis on ultrasound, and a HIDA scan showed nonvisualization of the gallbladder consistent with cystic duct obstruction. Patient was seen and examined at bedside. Overnight events were reviewed. Patient underwent laparoscopic cholecystectomy as scheduled and tolerated the procedure well. Objective vital signs Vital Sign Date Time Temp Pulse Resp B/P (MAP) Pulse Ox O2 Delivery O2 Flow Rate FiO2 02/05/25 12:50 98.7 85 18 115/79 (91) 99 98.7 02/05/25 08:00 Room Air* 0 21 Total Intake and Output 02/04/25 02/04/25 02/05/25 15:00 23:00 07:00 Intake Total 100 ml 205 ml 1100 ml Balance 100 ml 205 ml 1100 ml medications Current Medications Medications Dose Ordered Sig/[place] Route Start Time Stop Time Status Last Admin Dose Admin Sodium Chloride 1,000 ml @ 120 mls/hr Q8H20M IV 02/03/25 23:15 02/05/25 08:31 120 MLS/HR Acetaminophen 325 mg Q4HP PRN PO 02/03/25 23:15 02/04/25 17:14 325 MG Ondansetron HCl 4 mg Q4HP PRN IV 02/03/25 23:15 Enoxaparin Sodium 40 mg DAILY SC 02/05/25 10:00 Ceftriaxone Sodium 50 ml @ 100 mls/hr DAILY@09 IV 02/05/25 09:00 02/05/25 08:29 100 MLS/HR Metronidazole 100 ml @ 100 mls/hr Q8HR IV 02/04/25 06:00 02/05/25 05:37 100 MLS/HR Pantoprazole Sodium 40 mg DAILY IV 02/04/25 10:00 02/05/25 08:29 40 MG Sucralfate 1 gm BID@0600,2200 PO 02/04/25 06:00 02/05/25 05:37 1 GM Hydromorphone HCl 1 mg Q4HPRN PRN IV 02/04/25 20:15 02/05/25 10:16 1 MG Examination General: Patient is in acute distress. Patient alert and oriented in person, place and time. Patient following commands. HEENT: Normocephalic, atraumatic, moist mucous membranes Respiratory/pulmonary: Clear lungs bilaterally, vesicular murmurs present in almost all lung gee, no associated crackles or wheezes. Cardiovascular: Normal heart sounds S1 and S2 with no associated murmurs Abdomen: Mild diffuse abdominal tenderness. Hernandez sign positive Extremities: There is no peripheral edema present at the lower extremities. Peripheral Pulses: 3+ Radial (R). 3+ Radial (L). 3+ Dorsalis pedis (R). 3+ Dorsalis pedis(L) Skin: No rashes or pruritus, there is no sacral edema present at this time. Neurological: Intact cranial nerves with no focal neurologic deficits laboratory and microbiology Laboratory Tests 02/05/25 06:25 Test 02/05/25 06:25 Range/Units Serum Glucose 103 74-106 mg/dL Labs and/or images reviewed: Labs reviewed by me, Image(s) reviewed by me Problem List/Assessment/Plan Problem List/Assessment/Plan Cholelithiasis Acute cholecystitis CT shows pericolic stranding, small hypodense lesion along the posterior aspect of gallbladder with enlarged lymph node 12 mm HIDA scan shows Nonvisualization of the gallbladder suggestive of cystic duct obstruction. Gallbladder US- Cholelithiasis. Hepatic steatosis. Consulted surgery- Laparoscopic cholecystectomy on 02/05/25 Consider MRI to evaluate hypodense lesion seen in gallbladder Tylenol Zofran Morphine 2 mg Acute infectious gastroenteritis Labs showed neutrophilic leukocytosis IV fluids IV ceftriaxone 1 g daily IV metronidazole 500 mg 3 times daily Monitor electrolytes, avoid opioids Clear liquid diet; Advance diet as tolerated Cannabinoid hyperemesis syndrome Urine drug screen ordered GI cocktail- IV Protonix, p.o. sucralfate 1 g b.i.d. IV Zofran Clear liquid diet; Advance diet as tolerated Advised absolute cannabis cessation DIET: Clear liquid PUD prophylaxis: protonix 40mg DVT prophylaxis: Lovenox 40mg Goals of care: Full code, discussed for >16 minutes on 02/05/25 Plan discussed with patient Plan discussed with Dr. Washington Plan discussed with: Patient My Orders My Orders Orders - STACY SALEH Procedure Category Date Status Time Complete Blood Count LAB 02/06/25 Verified 04:00 Comprehensive LAB 02/06/25 Verified Metabolic Panel 04:00 Dietary Evaluation Review Comments: 1) If patient remains NPO > 7 days, consider EN/TPN to meet at least 75% of estimated daily needs 2) Advance to low-fat diet when medically feasible 3) Refer to outpatient RD for weight management 4) Follow-up with gastroenterology 5) Continue to monitor I&O, labs, and skin integrity Expected Outcomes/Goals: 1) patient to receive nutritional support within 7 days of NPO status 2) labs to improve 3) diet to advance 4) gradual wt loss 5) f/u in 3-5 days Date of Service: Feb 05, 2025 Billing Provider: EMILIANO WASHINGTON MD Common Visit Codes: [id number] INP/OBS CARE(HIGH) STACY SALEH Feb 05, 2025 18:42 EMILIANO WASHINGTON MD Feb 09, 2025 20:51
--- NOTE | 2025-02-05 19:25 | DVHOP2 ---
Operative Report - 2 Report Details Date: 02/05/25 Preop Diagnosis: acute cholecystitis Postop Diagnosis: Acute gangrenous cholecytitis Surgeon: Kemal Smith MD Anesthesiologist: Dr. Wiseman Anesthesia: General Drains: none Implant: none Consent: The patient was informed of the risks and benefits of the procedure. These include but are not limited to complications of anesthesia, postoperative infection, incomplete relief of symptoms, recurrence of symptoms, damage to blood vessels, nerves and tendons, deep venous thrombosis, pulmonary embolism and possible need for repeat surgery in the future. Complications: none Estimated Blood Loss: 100ml Indications for Surgery: Acute cholecystitis with HIDA positive Name of Procedure Performed Laparoscopic cholecystectomy Procedure Details Procedure Details: Upon arriving to the operating room patient was transferred to the operating table and placed in the supine position with arms extended. General endotracheal anesthesia was induced. Time-out was observed. Patient was prepped and draped in the standard sterile surgical fashion with chlorhexidine. I then proceeded to make a curvilinear infraumbilical incision and carried the dissection down to fascia, once at the fascia I grasped the umbilical stalk with a Sourav clamp. I then walked the Sourav clamp down to the base of the belly button, and once at the base I proceeded to a gained entry to the peritoneal cavity using Gordon technique. I then placed 2 interrupted 0 Vicryl sutures as fascial retention stitches. I then introduced the Gordon cannula and insufflated the peritoneal cavity to 15 mmHg with toleration. Camera was then inserted, I surveyed the entry site no injuries noted. Patient was then placed in the reverse Trendelenburg [id number] position. Three additional 5 mm ports were placed under direct vision at the epigastric area, right midclavicular subcostal area, and right flank. I then directed my attention to the liver and gallbladder. Dense Omentum was completely draping the gallbladder. I managed to bluntly take down the omentum from the gallbladder. Gallbladder was very distended, acutely inflamed, with gangrenous patches throug hout the anterior wall and with severe chronic inflammatory changes (very dense scarring). I then decompressed the gallbladder with needle syringe, 50 mL of dark bilious fluid was drained. I was then able to grasp the fundus of the gallbladder and retracted cephalad and towards the right shoulder. Due to the chronic scarring with dense overlying peritoneum gallbladder structures were very hard to identify. I proceeded to incise the peritoneum on either side of the gallbladder. I then proceeded to perform meticulous and careful dissection as the anatomy was completely distorted. This initial dissection took over 1 hour. I finally was able to identify a vessel that was anterior to the cystic duct, going up the anterior gallbladder and turning medially about the midpoint of the gallbladder. From this big vessel the cystic artery emanated and entered the gallbladder approximately correction through. I then carefully proceeded to dissect the dense attachments of this vessel to the gallbladder, and was able to move it medially. With this movement I was able to now identify the infundibulum. I then carefully dissected around the cystic duct and the cystic artery. I was able to fully skeletonized Calot triangle, and was able to identify the 2 structures entering the gallbladder (duct and artery). I then proceeded to clip the artery with 2 5 mm clips proximal and 1 distal. I then proceeded to clip the duct with 2 5 mm clips proximal and 1 distal. Both artery and duct were transected. Gallbladder was then dissected off of the liver bed, this was very cumbersome as the gallbladder was completely scarred into the liver. The posterior wall of the gallbladder was gangrenous. I had some spillage of bile from a rip in the gallbladder wall. Once the gallbladder was fully off of the liver bed I placed it in the Endo-Catch bag and proceeded to removed from the peritoneal cavity through the infraumbilical incision. I then took a look at the gallbladder fossa I utilized the cautery device to obtain hemostasis on some spots from the liver bed. Clips were in place. I then serially irrigated the gallbladder fossa and above the liver until effluent was clear. I then rechecked the gallbladder fossa there was no bleeding. All counts complete and correct. This concluded the intraperitoneal portion of the surgery. The 5 mm ports were removed under direct vision, and the peritoneal cavity was allowed to fully desufflate. The infraumbilical fascial defect was closed with the previously placed fascial retention stitches. All skin sites were closed with 4-0 Monocryl and Dermabond. 0.5% Marcaine was used as local anesthetic. Patient tolerated the procedure well and was transferred to PACU in stable condition. Specimen: Gallbladder and contents Condition Stable Disposition Still a Patient KEMAL VERDUGO MD Feb 05, 2025 19:25
[2025-02-05] MEDS ORDERED: MORPHINE SULFATE INJ 2 MG/ml SYRG IV PRN (19:30)
[2025-02-05] MEDS ORDERED: HYDROmorphone HCL 2 MG/ML VL/or syr IV PRN (19:30)
[2025-02-05] MEDS ORDERED: MORPHINE SULFATE 4 MG/ML SYR/VIAL IV PRN (19:30)
[2025-02-05] MEDS ORDERED: METOCLOPRAMIDE HCL 5MG/ml INJ 2ml VIAL IV PRN (19:30)
[2025-02-05] MEDS: HYDROmorphone HCL 2 MG/ML VL/or syr IV PRN (19:46)
[2025-02-05] MEDS: PIPERACILLIN-TAZOB 3.375GM 100 ML IV SCH (22:09)
[2025-02-06 01:00] VITALS: BP 116/68; PULSE 91; RESP 18; TEMP 98; O2SAT 100
[2025-02-06] MEDS: KETOROLAC TROMETH 30 MG/ML 1ML VIAL IV ONE ×2 (02:01→08:00)
[2025-02-06 05:00] VITALS: BP 106/63; PULSE 75; RESP 18; TEMP 98.3; O2SAT 96
[2025-02-06 06:38] LABS: Hematocrit 39.9 % (41.0-53.0); Hemoglobin 13.8 g/dL (13.5-17.5); Mean Corpuscular Hemoglobin 28.2 pg (28.0-32.0); Mean Corpuscular Volume 81.1 fL (80.0-100.0); Nucleated Red Blood Cells % 0.0 %
[2025-02-06 06:50] LABS: Alanine Aminotransferase 14 U/L (7-40); Alkaline Phosphatase 66 U/L (46-116); Anion Gap 11 (5-15); BUN/Creatinine Ratio 10.4 (10.0-20.0); Calcium 8.8 mg/dL (8.7-10.4); Carbon Dioxide 28 mmol/L (20-31); Chloride 101 mmol/L (98-107); Glucose 92 mg/dL (74-106); Sodium 140 mmol/L (136-145); Total Protein 6.4 g/dL (5.7-8.2)
[2025-02-06 06:51] LABS: Albumin 3.6 g/dL (3.2-4.8); Bilirubin, Total 0.8 mg/dL (0.2-1.0)
[2025-02-06 06:52] LABS: Blood Urea Nitrogen 8 mg/dL (9-23); Potassium 3.5 mmol/L (3.5-5.1)
[2025-02-06] MEDS: HYDROmorphone HCL 2 MG/ML VL/or syr ONE (07:59)
[2025-02-06 08:35] VITALS: BP 125/74; PULSE 85; RESP 19; TEMP 98.7; O2SAT 97
--- NOTE | 2025-02-06 10:19 | DVHPN2 ---
Progress Note - Surgical Date Seen: Feb 06, 2025 Post op day Post op day: 1 Subjective Patient reports: Feels better (Patient feeling better, now the pain switched to being postsurgical in nature, tolerated clear liquid diet.) Review of Systems: Deferred Objective Vital signs Vital Sign Date Time Temp Pulse Resp B/P (MAP) Pulse Ox O2 Delivery O2 Flow Rate FiO2 02/06/25 08:56 87 20 123/75 02/06/25 08:35 98.7 97 98.7 02/05/25 20:49 Room Air* 0 21 Total Intake and Output 02/05/25 02/05/25 02/06/25 15:00 23:00 07:00 Intake Total 150 ml 50 ml 0 ml Balance 150 ml 50 ml 0 ml Medications Current Medications Medications Dose Ordered Sig/[place] Route Start Time Stop Time Status Last Admin Dose Admin Sodium Chloride 1,000 ml @ 120 mls/hr Q8H20M IV 02/03/25 23:15 02/06/25 10:04 120 MLS/HR Acetaminophen 325 mg Q4HP PRN PO 02/03/25 23:15 02/04/25 17:14 325 MG Ondansetron HCl 4 mg Q4HP PRN IV 02/03/25 23:15 Enoxaparin Sodium 40 mg DAILY SC 02/05/25 10:00 02/06/25 09:59 40 MG Pantoprazole Sodium 40 mg DAILY IV 02/04/25 10:00 02/06/25 09:59 40 MG Sucralfate 1 gm BID@0600,2200 PO 02/04/25 06:00 02/06/25 05:19 1 GM Hydromorphone HCl 1 mg Q4HPRN PRN IV 02/04/25 20:15 02/06/25 08:26 1 MG Piperacillin Sod/ Tazobactam Sod 100 ml @ 25 mls/hr Q8HR IV 02/05/25 22:00 02/06/25 05:19 25 MLS/HR Laboratory Laboratory Tests 02/06/25 05:59 Test 02/06/25 05:59 Range/Units Serum Glucose 92 74-106 mg/dL Examination: GENERAL:Normal, HEENT:Normal (No icterus), ABDOMEN:Normal (Nondistended, incision sites with skin glue in place and without surrounding signs of infection, appropriate tenderness, soft and depressible, no rebound, no guarding) Labs and/or images reviewed: Labs reviewed by me (WBCs down to 10 from 19, hemoglobin stable, LFTs within normal limit) Problem List/Assessment/Plan Assessment and Plan Mr. Randall is a 19-year-old male who presented with the acute cholecystitis. Currently postop day 1 from laparoscopic cholecystectomy due to acute gangrenous cholecystitis. Patient will benefit from 48 hours of IV antibiotics prior to discharge. 1. Low-fat diet 2. Out of bed and ambulate 3. Recommended pain medications: Tylenol 650 mg every 6 hours, Toradol 15 mg IV every 6 hours, [place] 5 and 10 prn moderate and severe pain 4. MiraLax 1 packet daily 5. Incentive spirometry My Orders My Orders Orders - AHSAN VERDUGO MD Procedure Category Date Status Time Clear Liq Diet DIET 02/05/25 Transmitted Dinner Plan discussed with Plan discussed with: Patient Visit Coding Surgery Date of Service if different f: Feb 06, 2025 Billing Provider: AHSAN VERDUGO MD Surgery Visit Codes: [id number] INP/OBS CARE(HIGH) AHSAN VREDUGO MD Feb 06, 2025 10:19
--- NOTE | 2025-02-06 12:08 | DVHPNRES ---
Progress Note Date Seen: Feb 06, 2025 Resident Creating Document: STACY SALEH Medical Necessity Reason Pt with a Central, PICC or Fol: No Subjective Review of Systems This is a 19-year-old male without significant past medical history, presented to the ER with chief complain of abdominal pain and back pain. Patient reported the pain started 2 days back, described as cramp like, 8/10, improved on leaning forward, nonradiating. He also complained of vomiting, 20 episodes since the morning, vomitus contained food content, mucus, no blood seen. Patient denies fever, chills, constipation, diarrhea, chest pain, burning micturition. Patient was examined at bedside today. Vitals show tachycardia on arrival. Imaging revealed cholelithiasis and hepatic steatosis on ultrasound, and a HIDA scan showed nonvisualization of the gallbladder consistent with cystic duct obstruction. 02/05- Patient was seen and examined at bedside. Overnight events were reviewed. Patient underwent laparoscopic cholecystectomy as scheduled and tolerated the procedure well. 02/06- Patient was seen and examined at bedside. Overnight events were reviewed. Postoperative day1. Patient reports pain with deep breathing, movement, and standing. no bowel movement or passage of gas noted. Objective vital signs Vital Sign Date Time Temp Pulse Resp B/P (MAP) Pulse Ox O2 Delivery O2 Flow Rate FiO2 02/06/25 08:56 87 20 123/75 02/06/25 08:35 98.7 97 98.7 02/06/25 08:00 Room Air* 0 21 Total Intake and Output 02/05/25 02/05/25 02/06/25 15:00 23:00 07:00 Intake Total 150 ml 50 ml 0 ml Balance 150 ml 50 ml 0 ml medications Current Medications Medications Dose Ordered Sig/[place] Route Start Time Stop Time Status Last Admin Dose Admin Sodium Chloride 1,000 ml @ 120 mls/hr Q8H20M IV 02/03/25 23:15 02/06/25 10:04 120 MLS/HR Acetaminophen 325 mg Q4HP PRN PO 02/03/25 23:15 02/04/25 17:14 325 MG Ondansetron HCl 4 mg Q4HP PRN IV 02/03/25 23:15 Enoxaparin Sodium 40 mg DAILY SC 02/05/25 10:00 02/06/25 09:59 40 MG Pantoprazole Sodium 40 mg DAILY IV 02/04/25 10:00 02/06/25 09:59 40 MG Sucralfate 1 gm BID@0600,2200 PO 02/04/25 06:00 02/06/25 05:19 1 GM Hydromorphone HCl 1 mg Q4HPRN PRN IV 02/04/25 20:15 02/06/25 08:26 1 MG Piperacillin Sod/ Tazobactam Sod 100 ml @ 25 mls/hr Q8HR IV 02/05/25 22:00 02/06/25 05:19 25 MLS/HR Acetaminophen 650 mg Q6HR PO 02/06/25 12:00 UNV Ketorolac Tromethamine 15 mg Q6HPRN IV 02/06/25 12:00 02/11/25 11:59 UNV Acetaminophen/ Hydrocodone Bitart 1 tab Q4HPRN PRN PO 02/06/25 10:15 UNV Acetaminophen/ Hydrocodone Bitart 1 tab Q4HP PRN PO 02/06/25 10:15 UNV Polyethylene Glycol 17 gm DAILY PO 02/07/25 10:00 UNV Examination General: Patient is in acute distress. Patient alert and oriented in person, place and time. Patient following commands. HEENT: Normocephalic, atraumatic, moist mucous membranes Respiratory/pulmonary: Clear lungs bilaterally, vesicular murmurs present in almost all lung gee, no associated crackles or wheezes. Cardiovascular: Normal heart sounds S1 and S2 with no associated murmurs Abdomen: Mild diffuse abdominal tenderness Extremities: There is no peripheral edema present at the lower extremities. Peripheral Pulses: 3+ Radial (R). 3+ Radial (L). 3+ Dorsalis pedis (R). 3+ Dorsalis pedis(L) Skin: No rashes or pruritus, there is no sacral edema present at this time. Neurological: Intact cranial nerves with no focal neurologic deficits laboratory and microbiology Laboratory Tests 02/06/25 05:59 Test 02/06/25 05:59 Range/Units Serum Glucose 92 74-106 mg/dL Labs and/or images reviewed: Labs reviewed by me, Image(s) reviewed by me Problem List/Assessment/Plan Problem List/Assessment/Plan Cholelithiasis Acute gangrenous cholecystitis CT shows pericolic stranding, small hypodense lesion along the posterior aspect of gallbladder with enlarged lymph node 12 mm HIDA scan shows Nonvisualization of the gallbladder suggestive of cystic duct obstruction. Gallbladder US- Cholelithiasis. Hepatic steatosis. s/p Laparoscopic cholecystectomy on 02/05/25 Tylenol 650 mg every 6 hours Toradol 15 mg IV every 6 hours [place] 5 and 10 prn Zofran MiraLax 1 packet daily Incentive spirometry Low-fat diet Out of bed and ambulate Acute infectious gastroenteritis Labs showed neutrophilic leukocytosis IV fluids IV ceftriaxone 1 g daily IV metronidazole 500 mg 3 times daily Monitor electrolytes, avoid opioids Cannabinoid hyperemesis syndrome Urine drug screen ordered GI cocktail- IV Protonix, p.o. sucralfate 1 g b.i.d. IV Zofran Advised absolute cannabis cessation DIET: Regular PUD prophylaxis: protonix 40mg DVT prophylaxis: Lovenox 40mg Goals of care: Full code, discussed for >16 minutes on 02/06/25 Plan discussed with patient Plan discussed with Dr. Washington Plan discussed with: Patient My Orders My Orders Orders - STACY SALEH Procedure Category Date Status Time Complete Blood Count LAB 02/07/25 Verified 04:00 Comprehensive LAB 02/07/25 Verified Metabolic Panel 04:00 Dietary Evaluation Review Comments: 1) If patient remains NPO > 7 days, consider EN/TPN to meet at least 75% of estimated daily needs 2) Advance to low-fat diet when medically feasible 3) Refer to outpatient RD for weight management 4) Follow-up with gastroenterology 5) Continue to monitor I&O, labs, and skin integrity Expected Outcomes/Goals: 1) patient to receive nutritional support within 7 days of NPO status 2) labs to improve 3) diet to advance 4) gradual wt loss 5) f/u in 3-5 days Date of Service: Feb 06, 2025 Billing Provider: EMILIANO WASHINGTON MD Common Visit Codes: [id number] INP/OBS CARE(HIGH) STACY SALEH Feb 06, 2025 12:08 EMILIANO WASHINGTON MD Feb 09, 2025 20:52
[2025-02-06 12:25] VITALS: BP 125/83; PULSE 93; RESP 18; TEMP 98.7; O2SAT 96
[2025-02-06] MEDS: ACETAMINOPHEN 325 MG TAB PO SCH (12:36)
[2025-02-06] MEDS: KETOROLAC TROMETH 30 MG/ML 1ML VIAL IV SCH (12:36)
[2025-02-06] MEDS ORDERED: ACETAMINOPHEN 325 MG TAB PO SCH (14:00)
[2025-02-06] MEDS: HYDROmorphone HCL 2 MG/ML VL/or syr IV PRN (14:43)
[2025-02-06 16:50] VITALS: BP 123/77; PULSE 79; RESP 18; TEMP 98.4; O2SAT 98
[2025-02-06] MEDS: HYDROcodone-ACET 10/325MG TAB PO PRN (17:42)
[2025-02-06 20:40] VITALS: BP 124/72; PULSE 77; RESP 17; TEMP 98.2; O2SAT 96
[2025-02-06] MEDS: HYDROcodone-ACET 5/325MG TAB PO PRN (21:12)
[2025-02-07 04:39] VITALS: BP 133/89; PULSE 98; RESP 18; TEMP 97.8; O2SAT 96
[2025-02-07 07:25] LABS: Hematocrit 37.5 % (41.0-53.0); Hemoglobin 13.1 g/dL (13.5-17.5); Mean Corpuscular Hemoglobin 28.3 pg (28.0-32.0); Mean Corpuscular Volume 80.9 fL (80.0-100.0); Nucleated Red Blood Cells % 0.0 %
[2025-02-07 07:37] LABS: Alanine Aminotransferase 11 U/L (7-40); Albumin 3.4 g/dL (3.2-4.8); Alkaline Phosphatase 68 U/L (46-116); Anion Gap 10 (5-15); BUN/Creatinine Ratio 9.0 (10.0-20.0); Carbon Dioxide 28 mmol/L (20-31); Chloride 104 mmol/L (98-107); Glucose 100 mg/dL (74-106); Sodium 142 mmol/L (136-145); Total Protein 6.0 g/dL (5.7-8.2)
[2025-02-07 07:38] LABS: Bilirubin, Total 0.4 mg/dL (0.2-1.0)
[2025-02-07 07:51] LABS: Blood Urea Nitrogen 6 mg/dL (9-23); Calcium 8.4 mg/dL (8.7-10.4); Potassium 3.3 mmol/L (3.5-5.1)
[2025-02-07] MEDS ORDERED: POTASSIUM CHLORIDE 20 MEQ, LIDOCAINE 1% (LOCAL ANESTH.) 2 ML in SODIUM CHL 0.9% 100 ML IV ONE (08:30)
[2025-02-07 08:49] VITALS: BP 119/74; PULSE 75; RESP 15; TEMP 97.4; O2SAT 95
[2025-02-07] MEDS: POTASSIUM EFFERVESENT TAB 25 MEQ PO ONE (10:32)
[2025-02-07] MEDS: POLYETHYLENE GLYCOL 17 GM PWDR PO SCH (10:33)
--- NOTE | 2025-02-07 12:30 | DVHPN2 ---
Progress Note - Surgical Date Seen: Feb 07, 2025 Post op day Post op day: 2 Subjective Patient reports: No new complaints Review of Systems: Not Done Objective Vital signs Vital Sign Date Time Temp Pulse Resp B/P (MAP) Pulse Ox O2 Delivery O2 Flow Rate FiO2 02/07/25 08:49 97.4 75 15 119/74 (89) 95 97.4 02/06/25 20:00 Room Air* 0 21 Total Intake and Output 02/06/25 02/06/25 02/07/25 15:00 23:00 07:00 Intake Total 700 ml 500 ml 800 ml Balance 700 ml 500 ml 800 ml Medications Current Medications Medications Dose Ordered Sig/[place] Route Start Time Stop Time Status Last Admin Dose Admin Sodium Chloride 1,000 ml @ 120 mls/hr Q8H20M IV 02/03/25 23:15 02/07/25 05:18 120 MLS/HR Ondansetron HCl 4 mg Q4HP PRN IV 02/03/25 23:15 Enoxaparin Sodium 40 mg DAILY SC 02/05/25 10:00 02/07/25 10:33 40 MG Pantoprazole Sodium 40 mg DAILY IV 02/04/25 10:00 02/07/25 10:33 40 MG Sucralfate 1 gm BID@0600,2200 PO 02/04/25 06:00 02/07/25 05:17 1 GM Piperacillin Sod/ Tazobactam Sod 100 ml @ 25 mls/hr Q8HR IV 02/05/25 22:00 02/07/25 05:17 25 MLS/HR Acetaminophen 650 mg Q6HR PO 02/06/25 12:00 02/07/25 12:18 650 MG Ketorolac Tromethamine 15 mg Q6H IV 02/06/25 12:00 02/11/25 11:59 02/07/25 12:18 15 MG Acetaminophen/ Hydrocodone Bitart 1 tab Q4HPRN PRN PO 02/06/25 10:15 02/07/25 10:34 1 TAB Acetaminophen/ Hydrocodone Bitart 1 tab Q4HP PRN PO 02/06/25 10:15 02/07/25 04:05 1 TAB Polyethylene Glycol 17 gm DAILY PO 02/07/25 10:00 02/07/25 10:33 17 GM Hydromorphone HCl 1 mg Q6HP PRN IV 02/06/25 12:30 02/06/25 14:43 1 MG Laboratory Laboratory Tests 02/07/25 07:05 Test 02/07/25 07:05 Range/Units Serum Glucose 100 74-106 mg/dL Examination: HEENT:Normal, ABDOMEN:Normal Labs and/or images reviewed: Labs reviewed by me (No leukocytosis) Problem List/Assessment/Plan Assessment and Plan Mr. Randall is a 19-year-old male who presented with the acute cholecystitis. Currently postop day 2 from laparoscopic cholecystectomy due to acute gangrenous cholecystitis. Patient will benefit from 48 hours of IV antibiotics prior to discharge. Interval: Tolerating regular diet, ambulating, not requiring breakthrough pain medications. After patient finishes 48 hours of IV antibiotics he can get discharged home with an extra 3 days of p.o. antibiotics for a total 5 days of antibiotics post surgery. 1. Low-fat diet 2. Out of bed and ambulate 3. Recommended pain medications: Tylenol 650 mg every 6 hours, Toradol 15 mg IV every 6 hours, [place] 5 and 10 prn moderate and severe pain 4. MiraLax 1 packet daily 5. Incentive spirometry Upon discharge: 1. Low-fat diet 2. Recommended home pain medicines: Tylenol 650 mg every 6 hours, ibuprofen 600 mg every 8 hours for 5 days, [place] 5 mg every 6 hours prn severe pain 3. MiraLax 1 packet daily for 10 days 4. May shower, soap and water okay to run over incision sites. No bathing or swimming for 2 weeks 5. No lifting over 10 lb for 6-8 weeks 6. Follow up with Dr. Pagan at surgery Clinic in 2 weeks My Orders My Orders Orders - AHSAN VERDUGO MD Procedure Category Date Status Time Hydromorphone PHA 02/06/25 In Process Injection (Dilaudid 12:30 Plan discussed with Plan discussed with: Other Visit Coding Surgery Date of Service if different f: Feb 07, 2025 Billing Provider: AHSAN VERDUGO MD Surgery Visit Codes: NOT BILLABLE AHSAN VERDUGO MD Feb 07, 2025 12:30
[2025-02-07 13:29] VITALS: BP 124/73; PULSE 83; RESP 15; TEMP 98.3; O2SAT 94
--- NOTE | 2025-02-07 15:06 | DVHPNRES ---
Progress Note Date Seen: Feb 07, 2025 Resident Creating Document: EARNESTINETREY RESIDENT Medical Necessity Reason Pt with a Central, PICC or Fol: No Subjective Review of Systems This is a 19-year-old male without significant past medical history, presented to the ER with chief complain of abdominal pain and back pain. Patient reported the pain started 2 days back, described as cramp like, 8/10, improved on leaning forward, nonradiating. He also complained of vomiting, 20 episodes since the morning, vomitus contained food content, mucus, no blood seen. Patient denies fever, chills, constipation, diarrhea, chest pain, burning micturition. Patient was examined at bedside today. Vitals show tachycardia on arrival. Imaging revealed cholelithiasis and hepatic steatosis on ultrasound, and a HIDA scan showed nonvisualization of the gallbladder consistent with cystic duct obstruction. The patient was seen and examined at bedside. Overnight events were reviewed. Patient was using incentive spirometry. He reports having severe pain at the surgical sites, mostly in the umbilical scar. He denies any other complaints. Objective vital signs Vital Sign Date Time Temp Pulse Resp B/P (MAP) Pulse Ox O2 Delivery O2 Flow Rate FiO2 02/07/25 13:29 98.3 83 15 124/73 (90) 94 98.3 02/06/25 20:00 Room Air* 0 21 Total Intake and Output 02/06/25 02/06/25 02/07/25 15:00 23:00 07:00 Intake Total 700 ml 500 ml 800 ml Balance 700 ml 500 ml 800 ml medications Current Medications Medications Dose Ordered Sig/[place] Route Start Time Stop Time Status Last Admin Dose Admin Sodium Chloride 1,000 ml @ 120 mls/hr Q8H20M IV 02/03/25 23:15 02/07/25 05:18 120 MLS/HR Ondansetron HCl 4 mg Q4HP PRN IV 02/03/25 23:15 Enoxaparin Sodium 40 mg DAILY SC 02/05/25 10:02/07/25 10:33 40 MG Pantoprazole Sodium 40 mg DAILY IV 02/04/25 10:02/07/25 10:33 40 MG Sucralfate 1 gm BID@0600,2200 PO 02/04/25 06:00 02/07/25 05:17 1 GM Piperacillin Sod/ Tazobactam Sod 100 ml @ 25 mls/hr Q8HR IV 02/05/25 22:00 02/07/25 14:11 25 MLS/HR Acetaminophen 650 mg Q6HR PO 02/06/25 12:00 02/07/25 12:18 650 MG Ketorolac Tromethamine 15 mg Q6H IV 02/06/25 12:00 02/11/25 11:59 02/07/25 12:18 15 MG Acetaminophen/ Hydrocodone Bitart 1 tab Q4HPRN PRN PO 02/06/25 10:15 02/07/25 10:34 1 TAB Acetaminophen/ Hydrocodone Bitart 1 tab Q4HP PRN PO 02/06/25 10:15 02/07/25 14:13 1 TAB Polyethylene Glycol 17 gm DAILY PO 02/07/25 10:00 02/07/25 10:33 17 GM Hydromorphone HCl 1 mg Q6HP PRN IV 02/06/25 12:30 02/06/25 14:43 1 MG Examination Examination General: Patient is in acute distress. Patient alert and oriented in person, place and time. Patient following commands. HEENT: Normocephalic, atraumatic, moist mucous membranes Respiratory/pulmonary: Clear lungs bilaterally, vesicular murmurs present in almost all lung gee, no associated crackles or wheezes. Cardiovascular: Normal heart sounds S1 and S2 with no associated murmurs Abdomen: Surgical scars well-healing. Expectedly mild tender. Extremities: There is no peripheral edema present at the lower extremities. Peripheral Pulses: 3+ Radial (R). 3+ Radial (L). 3+ Dorsalis pedis (R). 3+ Dorsalis pedis(L) Skin: No rashes or pruritus, there is no sacral edema present at this time. Neurological: Intact cranial nerves with no focal neurologic deficits laboratory and microbiology Laboratory Tests 02/07/25 07:05 Test 02/07/25 07:05 Range/Units Serum Glucose 100 74-106 mg/dL Labs and/or images reviewed: Labs reviewed by me, Image(s) reviewed by me Problem List/Assessment/Plan Problem List/Assessment/Plan Cholelithiasis Acute gangrenous cholecystitis CT shows pericolic stranding, small hypodense lesion along the posterior aspect of gallbladder with enlarged lymph node 12 mm HIDA scan shows Nonvisualization of the gallbladder suggestive of cystic duct obstruction. Gallbladder US- Cholelithiasis. Hepatic steatosis. Postoperative day 3 s/p Laparoscopic cholecystectomy on 02/05/25 Tylenol 650 mg every 6 hours Toradol 15 mg IV every 6 hours [place] 5 and 10 prn Zofran MiraLax 1 packet daily Incentive spirometry Low-fat diet Out of bed and ambulate Surgery consult appreciated on 02/07/2025: Patient may shower, soap and water okay to run over incision sites. No weight lifting over 10 lb for 6-8 weeks as per surgery recommendations. Follow up with Dr. Montoya at surgery Clinic in 2 weeks. Pain management recommendations following discharge: Tylenol 650 mg q.4, ibuprofen 600 mg Q 3, [place] 5 mg q.6 for severe pain. Acute infectious gastroenteritis Labs showed neutrophilic leukocytosis IV fluids IV ceftriaxone 1 g daily IV metronidazole 500 mg 3 times daily Monitor electrolytes, avoid opioids Cannabinoid hyperemesis syndrome Urine drug screen ordered GI cocktail- IV Protonix, p.o. sucralfate 1 g b.i.d. IV Zofran Advised absolute cannabis cessation DIET: Regular PUD prophylaxis: protonix 40mg DVT prophylaxis: Lovenox 40mg Goals of care: Full code, discussed for >16 minutes on 02/06/25 Plan discussed with patient Plan discussed with Dr. [place] Plan discussed with: Patient Plan discussed with: Patient, Other (RN) Dietary Evaluation Review Comments: 1) If patient remains NPO > 7 days, consider EN/TPN to meet at least 75% of estimated daily needs 2) Advance to low-fat diet when medically feasible 3) Refer to outpatient RD for weight management 4) Follow-up with gastroenterology 5) Continue to monitor I&O, labs, and skin integrity Expected Outcomes/Goals: 1) patient to receive nutritional support within 7 days of NPO status 2) labs to improve 3) diet to advance 4) gradual wt loss 5) f/u in 3-5 days Date of Service: Feb 07, 2025 Billing Provider: EMILIANO WASHINGTON MD Common Visit Codes: [id number] INP/OBS CARE(MOD) TREY COLBY RESIDENT Feb 07, 2025 15:06 EMILIANO WASHINGTON MD Feb 09, 2025 20:52
[2025-02-07 16:36] VITALS: BP 112/66; PULSE 87; RESP 15; TEMP 97.8; O2SAT 95
[2025-02-07 20:39] VITALS: BP 127/76; PULSE 84; RESP 18; TEMP 98.5; O2SAT 98
[2025-02-08 01:00] VITALS: BP 139/92; PULSE 87; RESP 18; TEMP 98.4; O2SAT 96
[2025-02-08 04:11] LABS: Chloride 104 mmol/L (98-107); Sodium 142 mmol/L (136-145)
[2025-02-08 04:12] LABS: Anion Gap 11 (5-15); Carbon Dioxide 27 mmol/L (20-31); Potassium 3.3 mmol/L (3.5-5.1)
[2025-02-08 04:13] LABS: Hematocrit 36.3 % (41.0-53.0); Hemoglobin 12.5 g/dL (13.5-17.5); Mean Corpuscular Hemoglobin 28.1 pg (28.0-32.0); Mean Corpuscular Volume 81.4 fL (80.0-100.0); Nucleated Red Blood Cells % 0.1 %
[2025-02-08 04:17] LABS: BUN/Creatinine Ratio 8.7 (10.0-20.0); Glucose 89 mg/dL (74-106)
[2025-02-08 04:28] LABS: Blood Urea Nitrogen 6 mg/dL (9-23); Calcium 8.5 mg/dL (8.7-10.4)
[2025-02-08 04:52] VITALS: BP 123/80; PULSE 85; RESP 18; TEMP 98.2; O2SAT 97
[2025-02-08] MEDS: POTASSIUM EFFERVESENT TAB 25 MEQ PO ONE (06:40)
[2025-02-08 08:00] VITALS: RESP 16
[2025-02-08 09:22] VITALS: BP 136/90; PULSE 81; RESP 16; TEMP 98.1; O2SAT 96
--- NOTE | 2025-02-08 10:23 | DVHPN2 ---
Progress Note - Surgical Date Seen: Feb 08, 2025 Post op day Post op day: 3 Subjective Patient reports: No new complaints Review of Systems: Deferred Objective Vital signs Vital Sign Date Time Temp Pulse Resp B/P (MAP) Pulse Ox O2 Delivery O2 Flow Rate FiO2 02/08/25 09:22 98.1 81 16 136/90 (105) 96 98.1 02/07/25 20:00 Room Air* 0 21 Total Intake and Output 02/07/25 02/07/25 02/08/25 15:00 23:00 07:00 Intake Total 100 ml 1445 ml 350 ml Balance 100 ml 1445 ml 350 ml Medications Current Medications Medications Dose Ordered Sig/[place] Route Start Time Stop Time Status Last Admin Dose Admin Ondansetron HCl 4 mg Q4HP PRN IV 02/03/25 23:15 Enoxaparin Sodium 40 mg DAILY SC 02/05/25 10:00 02/07/25 10:33 40 MG Pantoprazole Sodium 40 mg DAILY IV 02/04/25 10:00 02/07/25 10:33 40 MG Sucralfate 1 gm BID@0600,2200 PO 02/04/25 06:00 02/08/25 05:30 1 GM Acetaminophen 650 mg Q6HR PO 02/06/25 12:00 02/08/25 05:31 650 MG Ketorolac Tromethamine 15 mg Q6H IV 02/06/25 12:00 02/11/25 11:59 02/08/25 05:30 15 MG Acetaminophen/ Hydrocodone Bitart 1 tab Q4HP PRN PO 02/06/25 10:15 02/07/25 21:02 1 TAB Polyethylene Glycol 17 gm DAILY PO 02/07/25 10:00 02/07/25 10:33 17 GM Piperacillin Sod/ Tazobactam Sod 100 ml @ 25 mls/hr Q6H IV 02/08/25 12:00 Laboratory Laboratory Tests 02/08/25 03:27 Test 02/08/25 03:27 Range/Units Serum Glucose 89 74-106 mg/dL Examination: ABDOMEN:Normal (non distended, soft, depressible, appropriate tenderness, incisions with skin glue) Labs and/or images reviewed: Labs reviewed by me Problem List/Assessment/Plan Assessment and Plan Mr. Randall is a 19-year-old male who presented with the acute cholecystitis. Currently postop day 2 from laparoscopic cholecystectomy due to acute gangrenous cholecystitis. Patient will benefit from 48 hours of IV antibiotics prior to discharge. Interval: Tolerating regular diet, ambulating, not requiring breakthrough pain medications. After patient finishes 48 hours of IV antibiotics he can get discharged home with an extra 3 days of p.o. antibiotics for a total 5 days of antibiotics post surgery. Cleared for discharge per surgical standpoint. 1. Low-fat diet 2. Out of bed and ambulate 3. Recommended pain medications: Tylenol 650 mg every 6 hours, Toradol 15 mg IV every 6 hours, [place] 5 and 10 prn moderate and severe pain 4. MiraLax 1 packet daily 5. Incentive spirometry Upon discharge: 1. Low-fat diet 2. Recommended home pain medicines: Tylenol 650 mg every 6 hours, ibuprofen 600 mg every 8 hours for 5 days, [place] 5 mg every 6 hours prn severe pain 3. MiraLax 1 packet daily for 10 days 4. May shower, soap and water okay to run over incision sites. No bathing or swimming for 2 weeks 5. No lifting over 10 lb for 6-8 weeks 6. Follow up with Dr. Pagan at surgery Clinic in 2 weeks Plan discussed with Plan discussed with: Other (nurse) Visit Coding Surgery Date of Service if different f: Feb 08, 2025 Billing Provider: AHSAN VERDUGO MD Surgery Visit Codes: NOT BILLABLE AHSAN VERDUGO MD Feb 08, 2025 10:23
[2025-02-08] MEDS: PIPERACILLIN-TAZOB 3.375GM 100 ML IV SCH (12:24)
[2025-02-08] MEDS ORDERED: POLY33505 PO (13:57)
[2025-02-08] MEDS ORDERED: AUG875T PO (13:57)
[2025-02-08] MEDS ORDERED: PANT40TA2 PO (13:57)
[2025-02-08] MEDS ORDERED: POTASSIUM CHL 20 Meq TABLET PO NR (14:00)
[2025-02-08 14:08] VITALS: BP 131/80; PULSE 65; RESP 16; TEMP 97.7; O2SAT 97
--- NOTE | 2025-02-08 14:08 | DVHDSRES ---
Discharge Summary Date of Admission Resident Creating Document: TREY COLBY Feb 03, 2025 at 23:06 Date of Discharge: Feb 08, 2025 Admitting Diagnosis abdominal pain and back pain Labs/Diagnostic Data: Laboratory Results Test 02/08/25 03:27 02/07/25 07:05 02/03/25 21:04 02/03/25 21:03 White Blood Count 7.0 10^3/uL (4.4-10.8) Red Blood Count 4.46 10^6/uL (4.5-5.90) Hemoglobin 12.5 g/dL (13.5-17.5) Hematocrit 36.3 % (41.0-53.0) Mean Corpuscular Volume 81.4 fL (80.0-100.0) Mean Corpuscular Hemoglobin 28.1 pg (28.0-32.0) Mean Corpuscular Hemoglobin Concent 34.5 g/dL (32.0-36.0) Red Cell Distribution Width 13.4 % (11.8-14.3) Platelet Count 287 10^3/uL (140-450) Mean Platelet Volume 8.7 fL (6.9-10.8) Neutrophils (%) (Auto) 73.5 % (37.0-80.0) Lymphocytes (%) (Auto) 15.8 % (10.0-50.0) Monocytes (%) (Auto) 7.9 % (0.0-12.0) Eosinophils (%) (Auto) 2.3 % (0.0-7.0) Basophils (%) (Auto) 0.5 % (0.0-2.0) Neutrophils # (Auto) 5.2 10 ^3/uL (1.6-8.6) Lymphocytes # (Auto) 1.1 10 ^3/uL (0.4-5.4) Monocytes # (Auto) 0.6 10 ^3/uL (0-1.3) Eosinophils # (Auto) 0.2 10 ^3/uL (0-0.8) Basophils # (Auto) 0 10 ^3/uL (0-0.2) Nucleated Red Blood Cells 0.1 % Sodium Level 142 mmol/L (136-145) Potassium Level 3.3 mmol/L (3.5-5.1) Chloride Level 104 mmol/L (98-107) Carbon Dioxide Level 27 mmol/L (20-31) Anion Gap 11 (5-15) Blood Urea Nitrogen 6 mg/dL (9-23) Creatinine 0.69 mg/dL (0.700-1.30) Glomerular Filtration Rate Calc 137 mL/min (>90) BUN/Creatinine Ratio 8.7 (10.0-20.0) Serum Glucose 89 mg/dL (74-106) Calcium Level 8.5 mg/dL (8.7-10.4) Total Bilirubin 0.4 mg/dL (0.2-1.0) Aspartate Amino Transferase (AST) 16 U/L (13-40) Alanine Aminotransferase (ALT) 11 U/L (7-40) Alkaline Phosphatase 68 U/L (46-116) Total Protein 6.0 g/dL (5.7-8.2) Albumin 3.4 g/dL (3.2-4.8) Prothrombin Time 11.4 sec (9.3-11.8) Prothrombin Time INR 1.08 (0.9-1.15) Activated Partial Thromboplast Time 29.9 SEC (24.5-34.5) Hemoglobin A1c 5.1 % A1C (<5.7) Phosphorus Level 2.2 mg/dL (2.4-5.1) C-Reactive Protein High Sensitivity 1.91 mg/dL (<1.0) Triglycerides Level 85 mg/dL (< 150) Cholesterol Level 130 mg/dL (< 200) LDL Cholesterol 91 mg/dL (< 100) HDL Cholesterol 36 mg/dL (40-59) Vitamin B12 Level 536 pg/mL (211-911) Vitamin D 25-Hydroxy 26.4 ng/mL (30.0-100) Thyroid Stimulating Hormone (TSH) 0.68 uIU/mL (0.55-4.78) Lipase 47 U/L (12-53) Test 02/03/25 20:50 Urine Color Yellow (Yellow) Urine Clarity Turbid (Clear) Urine pH 6.0 (5.0-9.0) Urine Specific [place] 1.029 (1.001-1.035) Urine Protein Trace (Negative) Urine Ketones 4+ (Negative) Urine Blood Negative /uL (Negative) Urine Nitrite Negative (Negative) Urine Bilirubin Negative (Negative) Urine Urobilinogen Normal mg/dL (Negative) Urine Leukocyte Esterase Negative /uL (Negative) Urine RBC None seen /hpf (0 - 3) Urine Microscopic WBC 7 /HPF (0-3) Urine Squamous Epithelial Cells None seen /hpf (<5) Urine Amorphous Crystals Few /hpf (None Seen) Urine Bacteria None seen /hpf (None Seen) Urine Mucus Few (None Seen) Urine Glucose Normal mg/dL (Normal) Urine Opiates Screen Neg (NEGATIVE) Urine Fentanyl Screen Neg (NEGATIVE) Urine Barbiturates Screen Neg (NEGATIVE) Urine Phencyclidine Screen Neg (NEGATIVE) Urine Amphetamines Screen Neg (NEGATIVE) Urine Benzodiazepines Screen Neg (NEGATIVE) Urine Cocaine Screen Neg (NEGATIVE) Urine Cannabinoids Screen Pos (NEGATIVE) Other Laboratory Tests 02/08/25 03:27 Brief Hx & Hospital Course: Mr. Hidalgo is a 19-year-old male with no significant past medical history who presented to the Emergency Department with acute onset abdominal and back pain, described as cramp-like, 8/10 in intensity, and improved by leaning forward. He also reported approximately 20 episodes of non-bloody, food-content vomiting. He denied fever, chills, diarrhea, constipation, chest pain, or urinary symptoms. Initial evaluation revealed tachycardia and imaging findings consistent with cholelithiasis and hepatic steatosis on ultrasound. A HIDA scan showed nonvisualization of the gallbladder, consistent with cystic duct obstruction. CT imaging revealed pericholecystic stranding and a small hypodense lesion near the gallbladder, suggestive of acute gangrenous cholecystitis. The patient underwent laparoscopic cholecystectomy on 02/05/2025. Postoperatively, he experienced expected surgical site pain, particularly at the umbilical scar, but remained alert and oriented. Incentive spirometry was used for respiratory support. He tolerated a regular diet and ambulated without difficulty. He was also treated for acute infectious gastroenteritis with neutrophilic leukocytosis, receiving IV fluids, ceftriaxone, and metronidazole. Opioids were minimized to avoid worsening gastrointestinal symptoms. Given the clinical picture and history, cannabinoid hyperemesis syndrome was considered. A urine drug screen was ordered, and the patient was advised to cease cannabis use. He was treated with IV Protonix, oral sucralfate, and IV Zofran.The patient was cleared for discharge after completing 48 hours of IV antibiotics, with an additional 3 days of oral antibiotics prescribed. He was advised to follow a low-fat diet, continue pain management with Tylenol, ibuprofen, and [place] as needed, and use MiraLax daily for 10 days. He may shower but should avoid bathing or swimming for 2 weeks. No lifting over 10 lbs for 68 weeks. Follow-up with Dr. Pagan at the surgery clinic is scheduled in 2 weeks. Examination General: Patient is in acute distress. Patient alert and oriented in person, place and time. Patient following commands. HEENT: Normocephalic, atraumatic, moist mucous membranes Respiratory/pulmonary: Clear lungs bilaterally, vesicular murmurs present in almost all lung gee, no associated crackles or wheezes. Cardiovascular: Normal heart sounds S1 and S2 with no associated murmurs Abdomen: Surgical scars well-healing. Expectedly mild tender. Extremities: There is no peripheral edema present at the lower extremities. Peripheral Pulses: 3+ Radial (R). 3+ Radial (L). 3+ Dorsalis pedis (R). 3+ Dorsalis pedis(L) Skin: No rashes or pruritus, there is no sacral edema present at this time. Neurological: Intact cranial nerves with no focal neurologic deficits Operations or Procedures PATIENT: ARNAV HIDALGO ACCT: [id number] UNIT: [id number] : 2005 LOC: [facility] ROOM / BED: [address] [place] [address] AGE / SEX: 19 / M ADM STATUS: ADM IN SERVICE 10 ORDERING PHYSICIAN: WILLIAM SEBASTIAN RESIDENT PROCEDURE(s): GBNM - NM HIDA SCAN REASON: Rule out Cholecystitis ORDER NUMBER(s): [id number], ACCESSION NUMBER(s): [id number] Procedure: NM NM HIDA SCAN Exam Date: 02/04/2025 09:50 AM Clinical History: Rule out Cholecystitis Comparison Study: None Nuclear Medicine Hepatobiliary Scan. Technique: Following the intravenous administration of 5.3 mCi of technetium 99m labeled Choletec multiple planar abdominal planar images were obtained. 2 mg IV morphine administered. Findings: The liver appears grossly normal in size. There is no abnormal persistence of the cardiac or blood pool activity. There is excretion of activity into the small bowel. There is nonvisualization of the gallbladder. Impression: Nonvisualization of the gallbladder suggestive of cystic duct obstruction. PATIENT: ARNAV HIDALGO ACCT: [id number] UNIT: [id number] : 2005 LOC: [facility] ROOM / BED: [id number] / B AGE / SEX: 19 / M ADM STATUS: ADM IN SERVICE 0750 ORDERING PHYSICIAN: KEMAL VERDUGO MD PROCEDURE(s): ABDL - ABDOMEN LIMITED REASON: Evaluation of gallbladder ORDER NUMBER(s): [id number], ACCESSION NUMBER(s): [id number] INDICATION: Evaluation of gallbladder TECHNIQUE: Multiple real-time sonographic images were obtained of the right upper quadrant. COMPARISON: None FINDINGS: The liver demonstrates increased echotexture without focal mass lesions. The liver measures 15.5 cm. There is no intrahepatic or extrahepatic ductal dilatation. The common duct measures 0.5 cm. Cholelithiasis. The gallbladder wall measures 0.3 cm and is within normal limits. The right kidney measures 10.0 cm. The right kidney is normal in contour, size, and shape. The echogenicity is normal. There is no hydronephrosis. The pancreas is not well visualized due to overlying bowel gas. IMPRESSION: Cholelithiasis. Hepatic steatosis. PATIENT: ARNAV HIDALGO ACCT: [id number] UNIT: [id number] : 2005 LOC: ER ROOM / BED: / AGE / SEX: 19 / M ADM STATUS: REG ER SERVICE 52 ORDERING PHYSICIAN: CHEYANNE HOLLOWAY PROCEDURE(s): ABPL - CT AB PEL WO CON-NO ORAL OR IV REASON: abd pain ORDER NUMBER(s): [id number], ACCESSION NUMBER(s): [id number] Exam: CT CT AB PEL WO CON-NO ORAL OR IV History: abd pain Comparison Study: None TECHNIQUE: Multidetector CT of the abdomen and pelvis was performed from lung bases to pubic symphysis. Imaging was performed without IV contrast. Axial, coronal, and sagittal multiplanar reformats were obtained from the axial data set by the technologist. RADIATION DOSE: CTDI vol 13.58 mGy. DLP 839.05 mGy.cm Findings: Limited evaluation of the solid organs in the absence of IV contrast. Lungs: The lung bases are clear. Liver: Unremarkable. Spleen: Unremarkable. Pancreas: Unremarkable. Gallbladder: There is pericholecystic stranding. Heterogeneous appearance of the gallbladder, predominantly hypodense with small hypodense lesion along the posterior aspect. There is an enlarged presumed adjacent lymph node measuring 12 mm. Adrenals: Unremarkable Kidneys: Unremarkable. Pelvic Viscera: Unremarkable. Vasculature: Unremarkable. Retroperitoneum: Unremarkable. Bowel: No bowel obstruction. Portions of the bowel are decompressed, limiting assessment. The appendix is normal. Musculoskeletal: Unremarkable. Soft tissues: Unremarkable Impression: 1. Abnormal appearance of the gallbladder with pericholecystic stranding as detailed. Findings may reflect acute cholecystitis in the appropriate clinical setting. Neoplastic etiologies cannot be excluded. Further evaluation with MRCP is suggested. Operative Report - 2 Report Details Date: 02/05/25 Preop Diagnosis: acute cholecystitis Postop Diagnosis: Acute gangrenous cholecytitis Surgeon: Kemal Smith MD Anesthesiologist: Dr. Wiseman Anesthesia: General Drains: none Implant: none Consent: The patient was informed of the risks and benefits of the procedure. These include but are not limited to complications of anesthesia, postoperative infection, incomplete relief of symptoms, recurrence of symptoms, damage to blood vessels, nerves and tendons, deep venous thrombosis, pulmonary embolism and possible need for repeat surgery in the future. Complications: none Estimated Blood Loss: 100ml Indications for Surgery: Acute cholecystitis with HIDA positive Name of Procedure Performed Laparoscopic cholecystectomy Procedure Details Procedure Details: Upon arriving to the operating room patient was transferred to the operating table and placed in the supine position with arms extended. General endotracheal anesthesia was induced. Time-out was observed. Patient was prepped and draped in the standard sterile surgical fashion with chlorhexidine. I then proceeded to make a curvilinear infraumbilical incision and carried the dissection down to fascia, once at the fascia I grasped the umbilical stalk with a Sourav clamp. I then walked the Sourav clamp down to the base of the belly button, and once at the base I proceeded to a gained entry to the peritoneal cavity using Gordon technique. I then placed 2 interrupted 0 Vicryl sutures as fascial retention stitches. I then introduced the Gordon cannula and insufflated the peritoneal cavity to 15 mmHg with toleration. Camera was then inserted, I surveyed the entry site no injuries noted. Patient was then placed in the reverse Trendelenburg [id number] position. Three additional 5 mm ports were placed under direct vision at the epigastric area, right midclavicular subcostal area, and right flank. I then directed my attention to the liver and gallbladder. Dense Omentum was completely draping the gallbladder. I managed to bluntly take down the omentum from the gallbladder. Gallbladder was very distended, acutely inflamed, with gangrenous patches throughout the anterior wall and with severe chronic inflammatory changes (very dense scarring). I then decompressed the gallbladder with needle syringe, 50 mL of dark bilious fluid was drained. I was then able to grasp the fundus of the gallbladder and retracted cephalad and towards the right shoulder. Due to the chronic scarring with dense overlying peritoneum gallbladder structures were very hard to identify. I proceeded to incise the peritoneum on either side of the gallbladder. I then proceeded to perform meticulous and careful dissection as the anatomy was completely distorted. This initial dissection took over 1 hour. I finally was able to identify a vessel that was anterior to the cystic duct, going up the anterior gallbladder and turning medially about the midpoint of the gallbladder. From this big vessel the cystic artery emanated and entered the gallbladder approximately mcc through. I then carefully proceeded to dissect the dense attachments of this vessel to the gallbladder, and was able to move it medially. With this movement I was able to now identify the infundibulum. I then carefully dissected around the cystic duct and the cystic artery. I was able to fully skeletonized Calot triangle, and was able to identify the 2 structures entering the gallbladder (duct and artery). I then proceeded to clip the artery with 2 5 mm clips proximal and 1 distal. I then proceeded to clip the duct with 2 5 mm clips proximal and 1 distal. Both artery and duct were transected. Gallbladder was then dissected off of the liver bed, this was very cumbersome as the gallbladder was completely scarred into the liver. The posterior wall of the gallbladder was gangrenous. I had some spillage of bile from a rip in the gallbladder wall. Once the gallbladder was fully off of the liver bed I placed it in the Endo-Catch bag and proceeded to removed from the peritoneal cavity through the infraumbilical incision. I then took a look at the gallbladder fossa I utilized the cautery device to obtain hemostasis on some spots from the liver bed. Clips were in place. I then serially irrigated the gallbladder fossa and above the liver until effluent was clear. I then rechecked the gallbladder fossa there was no bleeding. All counts complete and correct. This concluded the intraperitoneal portion of the surgery. The 5 mm ports were removed under direct vision, and the peritoneal cavity was allowed to fully desufflate. The infraumbilical fascial defect was closed with the previously placed fascial retention stitches. All skin sites were closed with 4-0 Monocryl and Dermabond. 0.5% Marcaine was used as local anesthetic. Patient tolerated the procedure well and was transferred to PACU in stable condition. Specimen: Gallbladder and contents Condition Stable Disposition Still a Patient KEMAL VERDUGO MD Feb 05, 2025 19:25 DICTATED BY:KEMAL VERDUGO MD DICTATED DATE/TIME:02/05/251924 ELECTRONICALLY SIGNED BY:KEMAL VERDUGO MD 02/05/251924 Condition at Discharge: Stable Final Diagnosis/Problems List Cholelithiasis Acute gangrenous cholecystitis s/p laparoscopic cholecystectomy Acute infectious gastroenteritis Cannabinoid hyperemesis syndrome Discharge Disposition: Home Discharge Instruct/Medications Diet: Regular Activity: Light activity Follow Up/Referral: Follow up with Dr. Pagan at surgery Clinic in 2 weeks Medications: New prescriptions: Augmentin 875 Mg PO BID 3 Days # 6 TAB Ref 0 Protonix 40 Mg PO DAILY 7 DAYS # 7 TAB Ref 0 Miralax 17 Gm PO DAILY PRN 10 Days # 10 POW Ref 0 Scheduled Amoxicillin & Pot Clavulanate (Augmentin Tablet), 875 MG PO BID Pantoprazole Sodium Sesquihydr (Protonix), 40 MG PO DAILY Scheduled PRN Polyethylene Glycol (Miralax), 17 GM PO DAILY PRN Discharge Statement: "Patient was advised to return to the ER or call 911 if any headaches, dizziness, shortness of breath, chest pain, abdominal pain, bleeding, fevers, or worsening of medical condition. Patient was counseled about treatment plan, medications, possible side effects, patientverbalized understanding. All questions were answered to the best of my ability. This discharge took greater then 30 minutes in planning, reviewing documentation, counseling the patient, and discussing with other team members." ASSESSMENT ASSESSMENT Assessment Cholelithiasis Acute gangrenous cholecystitis s/p laparoscopic cholecystectomy Acute infectious gastroenteritis Cannabinoid hyperemesis syndrome Date of Service: Feb 08, 2025 Billing Provider: EMILIANO MAHAN MD Common Visit Codes: 96020-UMQ/[id number] DISCH DAY >30min STACY SALEH RESIDENT Feb 08, 2025 14:08 EMILIANO MAHAN MD Feb 09, 2025 20:53
[2025-02-08] MEDS: POTASSIUM CHL 10 Meq TABLET PO ONE (14:15)
[2025-02-08 17:10] VITALS: BP 133/93; PULSE 70; RESP 17; TEMP 97.8; O2SAT 96
== END 2025-02-08 17:55 | disposition home or self-care (01) | DRG 710 ==
LOC: ER 20:35 → OVERFLOW 23:06 → WEST WING 23:43
PROVIDERS: ADMIT Internal Medicine Geriatric Medicine; ATTEND Internal Medicine Geriatric Medicine
PROC: 0FT44ZZ Resection of Gallbladder, Percutaneous Endoscopic Approach (ICD-10-PCS; principal; 2025-02-05 15:20)
DX: A41.9 Sepsis, unspecified organism (principal); K82.A1 Gangrene of gallbladder in cholecystitis; K80.00 Calculus of gallbladder with acute cholecystitis without obstruction; A09 Infectious gastroenteritis and colitis, unspecified; D72.829 Elevated white blood cell count, unspecified; R11.16 Cannabis hyperemesis syndrome
CPT/HCPCS: 36415; 74176; 76705; 78226; 80048; 80053; 80061; 80307; 81001; 82306; 82607; 83036; 83690; 83735; 84100; 84443; 85025; 85610; 85730; 86141; 96360; G0378; J1885; J2003; J2250; J2405; J2470; J2543; J2704; J3490